=== PATIENT | female | born 1970 | race Caucasian/White ===

== ENCOUNTER 2022-01-02 10:20 | Outpatient (REF) | payer OTHER, SELFPAY ==
[2022-01-02 12:59] LABS: TSH reflex Free T4 4.36 uIU/mL (0.32-4.0)
[2022-01-02 14:08] LABS: Free T4 (Free Thyroxine) 0.81 ng/dL (0.71-1.85)
== END 2022-01-02 10:21 | disposition home or self-care (01) ==
LOC: HO.HMGCLDS 10:20
PROVIDERS: PCP Internal Medicine; Visit Provider Internal Medicine
DX: E78.5 Hyperlipidemia, unspecified (principal); K80.20 Calculus of gallbladder without cholecystitis without obstruction
CPT/HCPCS: 36415; 84439; 84443

== ENCOUNTER 2023-01-03 10:18 | Outpatient (AMB) | payer OTHER, SELFPAY ==
--- NOTE | 2023-01-03 10:20 | MHC.PC.OV ---
Vital Signs 01/03/23 10:22 Height 5 ft 2 in Weight 185 lb BMI 33.8 BP 120/80 Blood Pressure Location Lt brachial Position Sitting Pulse 71 Pulse Source Pulse Oximeter Pulse Oximetry (%) 98 Oxygen Delivery Method Room Air Intake Visit Reasons: Annual PE Intake Note: Pt is here today for PE. Allergies No Known Allergies Allergy (Verified 01/03/23 10:26) Medication List - Last Reconciled 01/03/23 by Veena Beltran MD levothyroxine 88 mcg PO DAILY losartan 50 mg PO BEDTIME triamcinolone acetonide 0.1% 1 appl topical DAILY Tobacco use date assessed: 01/03/23 Dental Screening Dental Screen Date: 01/03/23 Did you have a dental visit in the last 12 months?: Yes Did you have a dental problem in the last 6 months where you did not have access to dental care?: No Was dental information given to patient?: Patient has dentist HPI Annual PE HPI Details Pt presents for PE. [facility] Medical History (Updated 01/03/23 @ 11:14 by Veena Beltran MD) Normal breast exam Annual physical exam Abnormal colonoscopy Menopausal and female climacteric states HTN (hypertension) Proteinuria White coat syndrome with diagnosis of hypertension Hypercholesterolemia Vitamin D deficiency IUD (intrauterine device) in place Hypothyroidism Surgical History Hx of cholecystectomy History of section History of breast lift Family History Father Colitis HTN (hypertension) CVD (cardiovascular disease) Mother Breast cancer Sister No problems noted. Son No problems noted. Son No problems noted. Social History Housing: House Patient Tobacco Use Status: Never used Tobacco e-Cigarette/Vaping Use: Never Used Current occupational status: unemployed Cognitive needs: No Hearing needs: No Vision needs: No Questionnaire Thrive Questionnaire Date Thrive assessed: 04/04/22 KIRAN-7 AMB Questionnaire KIARN-7 Date KIRAN - 7 assessed: 04/04/22 Source: Developed by Drs. Sidney Mike, Staci Holland, Wai Palacio and colleagues, with an educational samantha from [employer]. Review of Systems Const All systems reviewed & are unremarkable except as noted in HPI and below Reports no additional complaints Eyes Reports no additional complaints ENT Reports no additional complaints Card Reports no additional complaints Resp Reports no additional complaints GI Reports no additional complaints Reports no additional complaints Musc Reports no additional complaints Physical exam (Primary Care) Vital Signs: Last Vital Signs Pulse 71 01/03/23 10:22 BP 120/80 01/03/23 10:22 Pulse Ox 98 01/03/23 10:22 Oxygen Delivery Method Room Air 01/03/23 10:22 BMI result Body Mass Index 33.8 Tobacco/Smoking Status: Tobacco use Status Tobacco use date assessed 01/03/23 01/03/23 10:27 Patient Tobacco Use Status Never used Tobacco 01/03/23 10:27 e-Cigarette/Vaping Use Never Used 01/03/23 10:27 Thrive Assessment: Date of Thrive Assessment Date Thrive assessed 04/04/22 01/03/23 10:27 Const General: no acute distress HENMT Head: Yes normal to inspection Ears: hearing grossly normal bilaterally Face and sinus: Yes normal facial exam Mouth: Normal oral and palatal mucosa present Throat: Yes posterior oropharynx normal Neck Neck: Yes no lymphadenopathy and Yes supple Resp Effort & Inspection: normal respiratory effort Auscultation: clear to auscultation bilaterally Cardio Rhythm: regular rhythm Heart sounds: S1 normal heart sound present and S2 normal heart sound present GI Inspection: Yes normal to inspection Palpation (GI): Soft to palpation Percussion: Yes normal to percussion Auscultation: normal bowel sounds Assessment and Plan Assessment & Plan (1) HTN (hypertension): Code(s): I10 - Essential (primary) hypertension Plan: Continue losartan (2) Hyperlipidemia: Code(s): E78.5 - Hyperlipidemia, unspecified Plan: Continue low-cholesterol diet (3) Hypothyroidism: Comment: dx: 2013, nl thyroid US 2018 Code(s): E03.9 - Hypothyroidism, unspecified Plan: Continue levothyroxine (4) Annual physical exam: Code(s): Z00.00 - Encounter for general adult medical examination without abnormal findings Plan: Well-balanced diet regular physical activity discussed with the patient she is up-to-date with the mammogram Pap smear and colonoscopy. Patient will return in 1 year (5) Proteinuria: Code(s): R80.9 - Proteinuria, unspecified Orders: Orders Comprehensive [place]. Panel Fast 365 Days E03.9 - Hypothyroidism, unspecified, E78.5 - Hyperlipidemia, unspecified, I10 - Essential (primary) hypertension Lipid Panel 365 Days E03.9 - Hypothyroidism, unspecified, E78.5 - Hyperlipidemia, unspecified, I10 - Essential (primary) hypertension TSH reflex Free T4 365 Days E03.9 - Hypothyroidism, unspecified, E78.5 - Hyperlipidemia, unspecified, I10 - Essential (primary) hypertension UA CC w/rflx Micro + Cult Today I10 - Essential (primary) hypertension, R80.9 - Proteinuria, unspecified Complete Blood Count Auto Diff 365 Days E03.9 - Hypothyroidism, unspecified, E78.5 - Hyperlipidemia, unspecified, I10 - Essential (primary) hypertension UA w Microscopic 365 Days E03.9 - Hypothyroidism, unspecified, E78.5 - Hyperlipidemia, unspecified, I10 - Essential (primary) hypertension Protein Creatinine Ratio, Ur Today I10 - Essential (primary) hypertension, R80.9 - Proteinuria, unspecified Medications: New losartan 50 mg PO BEDTIME 90 tabs 3RF Refilled levothyroxine 88 mcg PO DAILY 90 tabs 3RF Coding Level of Care Code Est Pt Prev Care 40-64y(09024) Diagnoses HTN (hypertension) I10 Hyperlipidemia E78.5 Hypothyroidism E03.9 Annual physical exam Z00.00 Proteinuria R80.9
[2023-01-03 10:22] VITALS: BP 120/80; PULSE 71; O2SAT 98; BMI 33.8
== END 2023-01-03 11:04 | disposition home or self-care (01) ==
PROVIDERS: Visit Provider Internal Medicine
DX: I10 Essential (primary) hypertension (principal); E78.5 Hyperlipidemia, unspecified; E03.9 Hypothyroidism, unspecified; Z00.00 Encounter for general adult medical examination without abnormal findings; R80.9 Proteinuria, unspecified
CPT/HCPCS: 99396

== ENCOUNTER → 2023-01-16 10:53 | Outpatient (BNVA) | payer OTHER, SELFPAY | PROVIDERS: PCP Internal Medicine; Visit Provider Internal Medicine Hypertension Specialist | DX: R80.9 Proteinuria, unspecified (principal); I10 Essential (primary) hypertension; Z68.33 Body mass index [BMI] 33.0-33.9, adult | CPT/HCPCS: 99212 ==

== ENCOUNTER 2023-01-16 11:10 | Outpatient (AMB) | payer OTHER, SELFPAY ==
[2023-01-16 11:14] VITALS: BP 122/80; PULSE 68; O2SAT 98; BMI 33.5
--- NOTE | 2023-01-16 11:14 | HO.NEPHOV_ITS ---
HPI HPI Comments History of Present Illness Details Middle-aged woman with a BMI of 33 has had proteinuria for the last few years. She has no hematuria. Serum creatinine has been stable around 0.7 mg/dL. She has been on losartan 50 mg for the last few years and the urine protein excretion has been stable around 0.39 based on the protein creatinine ratio. About a month ago she stopped taking losartan for 2 weeks and she noted a blood pressure to be significantly elevated 190/110 mm of mercury associated with some headache. She took ibuprofen and restarted losartan. After is restarting losartan blood pressure has been well controlled. She has no new issues 20. No edema. No shortness of breath. No urinary symptoms. She was accompanied by her [facility] Medical History (Updated 01/03/23 @ 11:14 by Veena Beltran MD) Normal breast exam Annual physical exam Abnormal colonoscopy Menopausal and female climacteric states HTN (hypertension) Proteinuria White coat syndrome with diagnosis of hypertension Hypercholesterolemia Vitamin D deficiency IUD (intrauterine device) in place Hypothyroidism Surgical History Hx of cholecystectomy History of section History of breast lift Family History Father Colitis HTN (hypertension) CVD (cardiovascular disease) Mother Breast cancer Sister No problems noted. Son No problems noted. Son No problems noted. Housing: House Patient Tobacco Use Status: Never used Tobacco e-Cigarette/Vaping Use: Never Used Current occupational status: unemployed Cognitive needs: No Hearing needs: No Vision needs: No Vital Signs 01/16/23 11:14 Height 5 ft 2 in Weight 183 lb BMI 33.5 BP 122/80 Blood Pressure Location Rt brachial Position Sitting Pulse 68 Pulse Source Pulse Oximeter Pulse Oximetry (%) 98 Physical Exam Vital Signs: Last Vital Signs Pulse 68 01/16/23 11:14 BP 122/80 01/16/23 11:14 Pulse Ox 98 01/16/23 11:14 BMI result Body Mass Index 33.5 Const General: comfortable Nutritional Appearance: well nourished Orientation/consciousness: patient oriented x3 HEENT Head: No normal to inspection Mouth: moist mucous membranes Neck Neck: Yes supple and Yes no JVD Resp Auscultation: clear to auscultation bilaterally, no rales and rub present Cardio Jugular venous distension: no JVD Palpation: no palpable S3 and no palpable S4 Heart sounds: no rubs GI Palpation (GI): Soft to palpation and nontender Percussion: No Fluid wave present General: Yes no CVA tenderness Back/Spine/Pelvis Back: no CVA tenderness Skin General skin exam: no rashes or lesions noted Neuro General: patient oriented x3 Extrem General: Yes no pedal edema and No clubbing Results Reviewed Results Reviewed: All results from [facility] were reviewed. Urine protein creatinine ratio 0.39. Serum creatinine 0.7. Serum electrolytes were normal. Assessment & Plan Assessment & Plan (1) Proteinuria: Code(s): R80.9 - Proteinuria, unspecified (2) HTN (hypertension): Code(s): I10 - Essential (primary) hypertension Plan Middle-aged woman with minimal proteinuria of 390 mg based on urine protein creatinine ratio. Urinalysis was benign without any significant RBCs or casts. Serum creatinine has been stable around 0.7 mg/dL. The proteinuria is mostly related to her obesity. She had significant elevation of blood pressure. She probably has new onset hypertension. However are present blood pressure is well controlled with current dose of losartan. Increase her to stay on low-sodium diet. She will benefit from weight loss which we are discussed. I will continue to monitor her renal function and urine protein excretion periodically. If the urine protein excretion increases or if there is any change in renal function we will repeat serological workup and reassess for a kidney biopsy if indicated. At present I do not think she needs a kidney biopsy. Orders: Orders Electrolytes Today R80.9 - Proteinuria, unspecified UA and rflx microscopic Today R80.9 - Proteinuria, unspecified Blood Urea Nitrogen Today R80.9 - Proteinuria, unspecified Creatinine Today R80.9 - Proteinuria, unspecified Calcium Today R80.9 - Proteinuria, unspecified Total Protein Urine Random Today R80.9 - Proteinuria, unspecified Creatinine Urine Today R80.9 - Proteinuria, unspecified Coding Level of Care Code Est Pt Level 3 (80616) Diagnoses Proteinuria R80.9 HTN (hypertension) I10
== END 2023-01-16 11:48 | disposition home or self-care (01) ==
PROVIDERS: PCP Internal Medicine; Visit Provider Internal Medicine Hypertension Specialist
DX: R80.9 Proteinuria, unspecified (principal); I10 Essential (primary) hypertension
CPT/HCPCS: 99213

== ENCOUNTER 2024-01-22 15:55 | Outpatient (AMB) | payer OTHER, SELFPAY ==
[2024-01-22 15:52] VITALS: BP 148/92; PULSE 78; O2SAT 100; BMI 33.3
--- NOTE | 2024-01-22 15:52 | HO.NEPHOV ---
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 She has no hematuria. Serum creatinine has been stable around 0.7 mg/dL. She has been on losartan 50 mg for the last few years and the urine protein excretion has been stable around 0.39 based on the protein creatinine ratio. About a month ago she stopped taking losartan for 2 weeks and she noted a blood pressure to be significantly elevated 190/110 mm of mercury associated with some headache. She took ibuprofen and restarted losartan. After is restarting losartan blood pressure has been well controlled. She has no new issues 20. No edema. No shortness of breath. No urinary symptoms. 01/22/24 Here for annual follow up NO change in weight Home BP has been sub optimal [facility] Medical History (Updated 01/03/23 @ 11:14 by Veena Beltran MD) Normal breast exam Annual physical exam Abnormal colonoscopy Menopausal and female climacteric states HTN (hypertension) Proteinuria White coat syndrome with diagnosis of hypertension Hypercholesterolemia Vitamin D deficiency IUD (intrauterine device) in place Hypothyroidism Surgical History Hx of cholecystectomy History of section History of breast lift Family History Father Colitis HTN (hypertension) CVD (cardiovascular disease) Mother Breast cancer Sister No problems noted. Son No problems noted. Son No problems noted. Social History Housing: House Patient Tobacco Use Status: Never used Tobacco e-Cigarette/Vaping Use: Never Used Current occupational status: unemployed Cognitive needs: No Hearing needs: No Vision needs: No Physical Exam Vital Signs: Last Vital Signs Pulse 78 01/22/24 15:52 BP 148/92 H 01/22/24 15:52 Pulse Ox 100 01/22/24 15:52 Oxygen Delivery Method Room Air 01/22/24 15:52 BMI result Body Mass Index 33.3 Comfortable Neck supple no JVD. Lungs entry equal no rales. Heart S1-S2 heard no gallop or rub. Abdomen soft nontender. Neuro alert awake oriented. No asterixis. Extremities no edema. Results Reviewed Nephrology Results: Urine Protein 1+ (NEG - TRACE) H 12/25/17 Assessment & Plan Assessment & Plan (1) Proteinuria: Code(s): R80.9 - Proteinuria, unspecified Category: Medical (2) HTN (hypertension): Code(s): I10 - Essential (primary) hypertension Category: Medical Plan Middle-aged woman with minimal proteinuria of 390 mg based on urine protein creatinine ratio. Urinalysis was benign without any significant RBCs or casts. Serum creatinine has been stable around 0.7 mg/dL. The proteinuria is mostly related to her obesity. She had significant elevation of blood pressure. She probably has new onset hypertension. However are present blood pressure is sub optimal Increase losartan to 100 mg Increase her to stay on low-sodium diet. She will benefit from weight loss which we are discussed. I will continue to monitor her renal function and urine protein excretion periodically. If the urine protein excretion increases or if there is any change in renal function we will repeat serological workup and reassess for a kidney biopsy if indicated. At present I do not think she needs a kidney biopsy. Orders: Orders Creatinine Urine Today R80.9 - Proteinuria, unspecified Total Protein Urine Random 1 Year R80.9 - Proteinuria, unspecified Creatinine Urine 1 Year R80.9 - Proteinuria, unspecified UA and rflx microscopic 1 Year R80.9 - Proteinuria, unspecified Total Protein Urine Random Today R80.9 - Proteinuria, unspecified Basic Metabolic Panel 1 Year R80.9 - Proteinuria, unspecified Medications: Changed From losartan 50 mg PO BEDTIME 90 tabs 3RF To losartan 100 mg PO BEDTIME 90 tabs 3RF Discontinued prednisone Discontinued Reason: Patient no longer taking 20 mg PO DAILY 5 tabs 0RF Coding Level of Care Code Est Pt Level 4 (73572) Diagnoses Proteinuria R80.9 HTN (hypertension) I10
== END 2024-01-22 16:16 | disposition home or self-care (01) ==
PROVIDERS: PCP Internal Medicine; Visit Provider Internal Medicine Hypertension Specialist
DX: R80.9 Proteinuria, unspecified (principal); I10 Essential (primary) hypertension
CPT/HCPCS: 99214

== ENCOUNTER → 2024-01-22 15:55 | Outpatient (BNVA) | payer OTHER, SELFPAY | PROVIDERS: PCP Internal Medicine; Visit Provider Internal Medicine Hypertension Specialist | DX: R80.9 Proteinuria, unspecified (principal); I10 Essential (primary) hypertension | CPT/HCPCS: 99212 ==

== ENCOUNTER 2024-01-29 11:31 | Outpatient (AMB) | payer OTHER, SELFPAY ==
[2024-01-29 11:48] VITALS: BP 140/88; PULSE 78; O2SAT 97; BMI 33.8
--- NOTE | 2024-01-29 11:48 | MHC.PC.OV ---
Vital Signs 01/29/24 11:48 Height 5 ft 2 in Weight 185 lb BMI 33.8 BP 140/88 H Blood Pressure Location Lt brachial Position Sitting Pulse 78 Pulse Source Pulse Oximeter Pulse Oximetry (%) 97 Oxygen Delivery Method Room Air Intake Visit Reasons: Annual PE Intake Note: Pt is here today for her PE Allergies No Known Allergies Allergy (Verified 01/29/24 11:48) Medication List - Last Reconciled 01/29/24 by Veena Beltran MD cholecalciferol (vitamin D3) 25 mcg PO DAILY levothyroxine 88 mcg PO DAILY losartan 100 mg PO BEDTIME mecobalamin (vitamin B12) 1,000 mcg PO DAILY Tobacco use date assessed: 01/29/24 Dental Screening Dental Screen Date: 01/29/24 Did you have a dental visit in the last 12 months?: Yes Did you have a dental problem in the last 6 months where you did not have access to dental care?: No Was dental information given to patient?: Patient has dentist HPI Annual PE HPI Details Pt presents for PE. [facility] Medical History (Updated 01/29/24 @ 12:33 by Veena Beltran MD) Normal breast exam Annual physical exam Abnormal colonoscopy Menopausal and female climacteric states HTN (hypertension) Proteinuria White coat syndrome with diagnosis of hypertension Hypercholesterolemia Vitamin D deficiency IUD (intrauterine device) in place Hypothyroidism Surgical History Hx of cholecystectomy History of section History of breast lift Family History Father Colitis HTN (hypertension) CVD (cardiovascular disease) Mother Breast cancer Sister No problems noted. Son No problems noted. Son No problems noted. Social History Housing: House Patient Tobacco Use Status: Never used Tobacco e-Cigarette/Vaping Use: Never Used Current occupational status: unemployed Cognitive needs: No Hearing needs: No Vision needs: No Questionnaire PHQ-9 Over the last 2 weeks, how often have you been bothered by any of the following problems? 1. Little interest or pleasure in doing things: not at all 2. Feeling down, depressed, or hopeless: not at all 3. Trouble falling or staying asleep, or sleeping too much: not at all 4. Feeling tired or having little energy: not at all 5. Poor appetite or overeating: not at all 6. Feeling bad about yourself - or that you are a failure or have let yourself or your family down: not at all 7. Trouble concentrating on things, such as reading the newspaper or watching television: not at all 8. Moving or speaking so slowly that other people could have noticed. Or the opposite - being so fidgety or restless that you have been moving around a lot more than usual: not at all 9. Thoughts that you would be better off or of hurting yourself in some way: not at all Total score: 0 Depression Screening Interpretation: Negative Depression Screening Done: Yes 35973 - PHQ-9 Billing: Yes Source: Developed by Drs. Sidney Mike, Staci Holladn, Wai Palacio and colleagues, with an educational samantha from [employer]. Thrive Questionnaire Date Thrive assessed: 04/04/22 I am a: Patient What is your living situation today?: I choose not to answer this question Within the past 12 months, did the food you bought not last and you didn't have the money to get more?: I choose not to answer this question Within the past 12 months, did you worry whether your food would run out before you got money to buy more?: Never true Do you have trouble paying for medicines?: No Do you have trouble getting transportation to medical appointments?: No Do you have trouble paying your heating and electricity bill?: No Do you have trouble taking care of your child, family member or friend?: No Do you have trouble with day-to-day activities such as bathing, preparing meals, shopping, managing finances, etc.?: No Are you currently unemployed and looking for a job?: No Are you interested in more education?: No Please select the resources that you would like help with: None Currently or been in a relationship where the following occur: No concerns reported THRIVE Score: 0 AUDIT C Alcohol Use Questionnaire (AUDIT-C) 1. How often do you have a drink containing alcohol?: Monthly or less 2. How many drinks containing alcohol do you have on a typical day when you are drinking?: 1 or 2 3. How often do you have six or more drinks on one occasion?: Never Total Score: 1 KIRAN-7 AMB Questionnaire KIRAN-7 Date KIRAN - 7 assessed: 04/04/22 Feeling nervous, anxious, or on edge: 0 = Not at all Not being able to stop or control worryin = Not at all Worrying too much about different things: 0 = Not at all Trouble relaxin = Not at all Being so restless that it is hard to sit still: 0 = Not at all Becoming easily annoyed or irritable: 0 = Not at all Feeling afraid as if something awful might happen: 0 = Not at all Total KIRAN-7 score (0-4 normal; 5-9 mild; 10-14 moderate; 15-21 severe): 0 Source: Developed by Drs. Sidney Mike, Staci Holland, Wai Palacio and colleagues, with an educational samantha from [employer]. Review of Systems Const All systems reviewed & are unremarkable except as noted in HPI and below Reports no additional complaints Eyes Reports no additional complaints ENT Reports no additional complaints Card Reports no additional complaints Resp Reports no additional complaints GI Reports no additional complaints Reports no additional complaints Physical exam (Primary Care) Vital Signs: Last Vital Signs Pulse 78 01/29/24 11:48 BP 140/88 H 01/29/24 11:48 Pulse Ox 97 01/29/24 11:48 Oxygen Delivery Method Room Air 01/29/24 11:48 BMI result Body Mass Index 33.8 Tobacco/Smoking Status: Tobacco use Status Tobacco use date assessed 01/29/24 01/29/24 11:50 Patient Tobacco Use Status Never used Tobacco 01/29/24 11:50 e-Cigarette/Vaping Use Never Used 01/29/24 11:50 Depression Screening Interpretation: Negative Thrive Assessment: Date of Thrive Assessment Date Thrive assessed 04/04/22 01/29/24 11:50 Currently or been in a relationship where the following occur: No concerns reported Const General: no acute distress HENMT Head: Yes normal to inspection Ears: hearing grossly normal bilaterally Face and sinus: Yes normal facial exam Mouth: Normal oral and palatal mucosa present Throat: Yes posterior oropharynx normal Eyes General: appearance normal, both eyes and all related structures Neck Neck: Yes no lymphadenopathy and Yes supple Resp Effort & Inspection: normal respiratory effort Auscultation: clear to auscultation bilaterally Cardio Rhythm: regular rhythm Heart sounds: S1 normal heart sound present and S2 normal heart sound present GI Inspection: Yes normal to inspection Palpation (GI): Soft to palpation Percussion: Yes normal to percussion Auscultation: normal bowel sounds Coding Level of Care Code Est Pt Prev Care 40-64y(54957) Diagnoses Proteinuria R80.9 Hypothyroidism E03.9 Hyperlipidemia E78.5 HTN (hypertension) I10 Annual physical exam Z00.00 Abnormal colonoscopy R93.3 Additional Codes PHQ-9 - 32839 - PHQ-9 Billing: Yes ([id number]) Assessment & Plan Assessment & Plan (1) Proteinuria: Comment: f/u with nephrology Code(s): R80.9 - Proteinuria, unspecified Category: Medical Plan: Patient started taking 100 mg of losartan 1 week ago 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 She has been tolerating medication well (2) Hypothyroidism: Comment: dx: 2013, nl thyroid US 2018 Code(s): E03.9 - Hypothyroidism, unspecified Category: Medical Plan: Continue levothyroxine check thyroid ultrasound for enlarged thyroid (3) Hyperlipidemia: Code(s): E78.5 - Hyperlipidemia, unspecified Category: Medical Plan: Low-cholesterol diet increase physical activity weight loss discussed with the patient (4) HTN (hypertension): Code(s): I10 - Essential (primary) hypertension Category: Medical Plan: Continue 100 mg of losartan follow-up in 6 weeks (5) Annual physical exam: Code(s): Z00.00 - Encounter for general adult medical examination without abnormal findings Category: Medical Plan: Well-balanced diet regular exercise weight loss discussed with the patient. 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 Stephens Code(s): R93.3 - Abnormal findings on diagnostic imaging of other parts of digestive tract Category: Medical Plan: Referred to GI for repeat colonoscopy Orders: Orders US thyroid Today E04.9 - Nontoxic goiter, unspecified Referrals Podiatry Referral L84 - Corns and callosities
== END 2024-01-29 12:40 | disposition home or self-care (01) ==
PROVIDERS: PCP Internal Medicine; Visit Provider Internal Medicine
DX: R80.9 Proteinuria, unspecified (principal); E03.9 Hypothyroidism, unspecified; E78.5 Hyperlipidemia, unspecified; I10 Essential (primary) hypertension; Z00.00 Encounter for general adult medical examination without abnormal findings; R93.3 Abnormal findings on diagnostic imaging of other parts of digestive tract

== ENCOUNTER → 2024-01-29 11:31 | Outpatient (BNVA) | payer OTHER, SELFPAY | PROVIDERS: PCP Internal Medicine; Visit Provider Internal Medicine | DX: Z00.00 Encounter for general adult medical examination without abnormal findings (principal); I10 Essential (primary) hypertension; R93.3 Abnormal findings on diagnostic imaging of other parts of digestive tract; R80.9 Proteinuria, unspecified; E03.9 Hypothyroidism, unspecified; E78.5 Hyperlipidemia, unspecified | CPT/HCPCS: 96127; 99396 ==

== ENCOUNTER 2024-01-29 12:49 | Outpatient (REF) | payer OTHER, SELFPAY ==
[2024-01-29 17:25] LABS: Creatinine Urine 62.41 mg/dL; Total Protein Urine Random 18 mg/dL (<12)
== END 2024-01-29 12:50 | disposition home or self-care (01) ==
LOC: HO.HMGCLDS 12:49
PROVIDERS: PCP Internal Medicine; Visit Provider Internal Medicine Hypertension Specialist
DX: R80.9 Proteinuria, unspecified (principal)
CPT/HCPCS: 82570; 84156

== ENCOUNTER 2024-03-18 12:34 | Outpatient (AMB) | payer OTHER, SELFPAY ==
--- NOTE | 2024-03-18 12:50 | A.OFFPC_ITS ---
Vital Signs 03/18/24 13:01 Height 5 ft 2 in Weight 183 lb BMI 33.5 BP 122/80 Blood Pressure Location Lt brachial Position Sitting Pulse 78 Pulse Source Pulse Oximeter Pulse Oximetry (%) 96 Oxygen Delivery Method Room Air Intake Visit Reasons: 6 weeks follow up Intake Note: Marizol is here today for 6 weeks follow up visit. Allergies No Known Allergies Allergy (Verified 03/18/24 13:02) Medication List - Last Reconciled 03/18/24 by Veena Beltran MD cholecalciferol (vitamin D3) 25 mcg PO DAILY levothyroxine 88 mcg PO DAILY losartan 100 mg PO BEDTIME mecobalamin (vitamin B12) 1,000 mcg PO DAILY Tobacco use date assessed: 03/18/24 Dental Screening Dental Screen Date: 03/18/24 Did you have a dental visit in the last 12 months?: Yes Did you have a dental problem in the last 6 months where you did not have access to dental care?: No Was dental information given to patient?: Patient has dentist HPI 6 weeks follow up HPI Details Pt presents for f/u hypothyroid and HTN, stable on meds. [facility] Medical History Normal breast exam Annual physical exam Abnormal colonoscopy Menopausal and female climacteric states HTN (hypertension) Proteinuria White coat syndrome with diagnosis of hypertension Hypercholesterolemia Vitamin D deficiency IUD (intrauterine device) in place Hypothyroidism Surgical History Hx of cholecystectomy History of section History of breast lift Family History Father Colitis HTN (hypertension) CVD (cardiovascular disease) Mother Breast cancer Sister No problems noted. Son No problems noted. Son No problems noted. Social History Housing: House Patient Tobacco Use Status: Never used Tobacco e-Cigarette/Vaping Use: Never Used service: No Current occupational status: unemployed Cognitive needs: No Hearing needs: No Vision needs: No Questionnaire PHQ-9 Over the last 2 weeks, how often have you been bothered by any of the following problems? 1. Little interest or pleasure in doing things: not at all 2. Feeling down, depressed, or hopeless: not at all 3. Trouble falling or staying asleep, or sleeping too much: not at all 4. Feeling tired or having little energy: not at all 5. Poor appetite or overeating: not at all 6. Feeling bad about yourself - or that you are a failure or have let yourself or your family down: not at all 7. Trouble concentrating on things, such as reading the newspaper or watching television: not at all 8. Moving or speaking so slowly that other people could have noticed. Or the opposite - being so fidgety or restless that you have been moving around a lot more than usual: not at all 9. Thoughts that you would be better off or of hurting yourself in some way: not at all Total score: 0 Depression Screening Interpretation: Negative Depression Screening Done: Yes 09243 - PHQ-9 Billing: Yes Source: Developed by Drs. Sidney Mike, Staci Holland, Wai Palacio and colleagues, with an educational samantha from [employer]. Thrive Questionnaire Date Thrive assessed: 03/18/24 I am a: Patient What is your living situation today?: I choose not to answer this question Within the past 12 months, did the food you bought not last and you didn't have the money to get more?: I choose not to answer this question Within the past 12 months, did you worry whether your food would run out before you got money to buy more?: Never true Do you have trouble paying for medicines?: No Do you have trouble getting transportation to medical appointments?: No Do you have trouble paying your heating and electricity bill?: No Do you have trouble taking care of your child, family member or friend?: No Do you have trouble with day-to-day activities such as bathing, preparing meals, shopping, managing finances, etc.?: No Are you currently unemployed and looking for a job?: No Are you interested in more education?: No Please select the resources that you would like help with: None Currently or been in a relationship where the following occur: No concerns reported THRIVE Score: 0 AUDIT C Alcohol Use Questionnaire (AUDIT-C) 1. How often do you have a drink containing alcohol?: Monthly or less 2. How many drinks containing alcohol do you have on a typical day when you are drinking?: 1 or 2 3. How often do you have six or more drinks on one occasion?: Never Total Score: 1 KIRAN-7 AMB Questionnaire KIRAN-7 Date KIRAN - 7 assessed: 03/18/24 Feeling nervous, anxious, or on edge: 0 = Not at all Not being able to stop or control worryin = Not at all Worrying too much about different things: 0 = Not at all Trouble relaxin = Not at all Being so restless that it is hard to sit still: 0 = Not at all Becoming easily annoyed or irritable: 0 = Not at all Feeling afraid as if something awful might happen: 0 = Not at all Total KIRAN-7 score (0-4 normal; 5-9 mild; 10-14 moderate; 15-21 severe): 0 Source: Developed by Drs. Sidney Mike, Staci Holland, Wai Palacio and colleagues, with an educational samantha from [employer]. KIRAN-7 Assessment Billing KIRAN-7 Assessment Tool: KIRAN-7 Assessment 53384 Physical exam (Primary Care) Vital Signs: Last Vital Signs Pulse 78 03/18/24 13:01 BP 122/80 03/18/24 13:01 Pulse Ox 96 03/18/24 13:01 Oxygen Delivery Method Room Air 03/18/24 13:01 BMI result Body Mass Index 33.5 Tobacco/Smoking Status: Tobacco use Status Tobacco use date assessed 03/18/24 03/18/24 13:05 Patient Tobacco Use Status Never used Tobacco 03/18/24 12:50 e-Cigarette/Vaping Use Never Used 03/18/24 12:50 PHQ-9: PHQ-9 Score PHQ-9: Total score 0 03/18/24 13:05 Depression Screening Interpretation: Negative Thrive Assessment: Date of Thrive Assessment Date Thrive assessed 03/18/24 03/18/24 13:05 Currently or been in a relationship where the following occur: No concerns reported Const General: no acute distress Eyes General: appearance normal, both eyes and all related structures Resp Effort & Inspection: normal respiratory effort Auscultation: clear to auscultation bilaterally Cardio Rhythm: regular rhythm Heart sounds: S1 normal heart sound present and S2 normal heart sound present Coding Level of Care Code Est Pt Level 4 (03785) Diagnoses Hypothyroidism E03.9 HTN (hypertension) I10 Hyperlipidemia E78.5 Additional Codes KIRAN-7 Assessment Billing - KIRAN-7 Assessment Tool: KIRAN-7 Assessment 42981 ([id number]) PHQ-9 - 27213 - PHQ-9 Billing: Yes ([id number]) Assessment & Plan Assessment & Plan (1) Hypothyroidism: Comment: dx: 2013, nl thyroid US 2018 Code(s): E03.9 - Hypothyroidism, unspecified Category: Medical Plan: Continue levothyroxine (2) HTN (hypertension): Code(s): I10 - Essential (primary) hypertension Category: Medical Plan: Continue losartan, follow-up in 3 months with fasting labs before (3) Hyperlipidemia: Code(s): E78.5 - Hyperlipidemia, unspecified Category: Medical Plan: Continue low-cholesterol diet, patient needs a Pap smear next time Orders: Orders Lipid Panel 3 Months E03.9 - Hypothyroidism, unspecified, E78.5 - Hyperlipidemia, unspecified, I10 - Essential (primary) hypertension Hemoglobin A1c 3 Months E03.9 - Hypothyroidism, unspecified, E78.5 - Hyperlipidemia, unspecified, I10 - Essential (primary) hypertension Vitamin B12 and Folate 3 Months E03.9 - Hypothyroidism, unspecified, E78.5 - Hyperlipidemia, unspecified, I10 - Essential (primary) hypertension Vitamin D 25-OH Total 3 Months E03.9 - Hypothyroidism, unspecified, E78.5 - Hyperlipidemia, unspecified, I10 - Essential (primary) hypertension Comprehensive [place]. Panel Fast 3 Months E03.9 - Hypothyroidism, unspecified, E78.5 - Hyperlipidemia, unspecified, I10 - Essential (primary) hypertension TSH reflex Free T4 3 Months E03.9 - Hypothyroidism, unspecified, E78.5 - Hyperlipidemia, unspecified, I10 - Essential (primary) hypertension
[2024-03-18 13:01] VITALS: BP 122/80; PULSE 78; O2SAT 96; BMI 33.5
--- OUTSIDE RECORDS SUMMARY | 2024-03-18 14:24 | XMS_ITS | Clinical Summary ---
Author Organization [facility] Facility Address [address] [place] [address] Care Team Providers Care Custom Framing Specialist Name Role Phone Veena Beltran MD Primary Care Provider [phone] Allergies No known active allergies Medications omega-3 (FISH OIL) 1000 MG capsule Take 1 capsule by mouth 1 (one) time each day Active Selenium 200 MCG capsule Take 1 capsule by mouth 1 (one) time each day Active cyanocobalamin (VITAMIN B-12) 1000 MCG tablet Take 1 tablet by mouth 1 (one) time each day Active levothyroxine (SYNTHROID, LEVOTHROID) 75 MCG tablet Take 1 tablet by mouth 1 (one) time each day Active losartan (COZAAR) 50 MG tablet TAKE 1 TABLET BY MOUTH EVERY DAY IN THE EVENING 90 tablet 2 08/05/2022 Active Active Problems Problem Noted Date Diagnosed Date Obesity 06/21/2021 Increased blood pressure 06/07/2020 Essential hypertension 06/07/2020 Hyperlipidemia 06/07/2020 Hypothyroidism 06/07/2020 Proteinuria 06/07/2020 Vitamin D deficiency 06/07/2020 Immunizations Name Administration Dates Next Due Tdap 04/30/2012 Family History Medical History Relation Comments Heart disease Father Hypertension Father Cancer Mother Hypertension Mother Hypertension Sibling Relation Status Comments Father Alive Mother Unknown Sibling Social History Tobacco Use Types Packs/Day Years Used Date Smoking Tobacco: Never Smokeless Tobacco: Never Tobacco Cessation:Counseling Given: No Alcohol Use Standard Drinks/Week Comments Yes 0 (1 standard drink = 0.6 oz pure alcohol) Alcoholic Drinks/day: Occasional social drink Comments Unknown Sex and Gender Information Value Date Recorded Sex Assigned at Not on file Legal Sex Female 4:49 PM EST Gender Identity Not on file Sexual Orientation Not on file Last Filed Vital Signs Vital Sign Reading Time Taken Comments Blood Pressure 130/88 12/27/2021 1:33 PM EDT Pulse 75 12/27/2021 1:33 PM EDT Temperature - - Respiratory Rate - - Oxygen Saturation 98% 12/27/2021 1:33 PM EDT Inhaled Oxygen Concentration - - Weight 81.3 kg (179 lb 3.2 oz) 12/27/2021 1:33 P M EDT Height 157.5 cm (5' 2 ) 06/21/2021 1:37 PM EDT Body Mass Index 32.78 06/21/2021 1:37 PM EDT Plan of Treatment Health Maintenance Due Date Last Done Comments Breast Cancer Screening 1970 Pneumococcal Vaccine: Pediat rics (0 to 5 Years) and At-Risk Patients (6 to 64 Years) (1 of 2 - PCV) 1976 Hepatitis B Vaccine (1 of 3 - 19+ 3-dose series) 11/29 Colorectal Cancer Screening: Annual FOBT 11/30/2019 Colorectal Cancer Screening: Colonoscopy 11/30/2019 Colorectal Cancer Screening: Sigmoidoscopy 11/30/2019 Influenza Vaccine (#1) 2023 Care Teams Custom Framing Specialist Relationship Specialty Start Date End Date Veena Beltran MD [address] [place] [address] PCP - General 03/07/20
--- OUTSIDE RECORDS SUMMARY | 2024-03-18 14:24 | XMS_ITS | Clinical Summary ---
Author Organization [address] [place] [address] Address [address] [place] [address] Phone Care Team Providers Care Tapping Machine Operator Name Role Phone Veena Beltran MD Primary Care Provider [phone] Allergies No known active allergies Medications Medication Sig Dispensed Refills Start Date End Date Status levothyroxine (SYNTHROID, LEVOTHROID) 75 mcg tablet levothyroxine 75 mcg tablet Active Surgical History Surgery Date Site/Laterality Comments SECTION PROCEDURE: [place] DELIVERY ONLY OTHER SURGICAL HISTORY 2015 Bilateral PROCEDURE: ---- OTHER ----; COMMENT: breast Social History Tobacco Use Types Packs/Day Years Used Date Smoking Tobacco: Never Alcohol Use Standard Drinks/Week Comments Yes 0 (1 standard drink = 0.6 oz pur e alcohol) Sex and Gender Information Value Date Recorded Sex Assigned at Not on file Gender Identity Not on file Sexual Orientation Not on file Obstetrics History Last Filed Vital Signs Vital Sign Reading Time Taken Comments Blood Pressure 130/85 12/12/2021 2:18 PM EDT Pulse 80 12/12/2021 2:18 PM EDT Temperature - - Respiratory Rate - - Oxygen Saturation - - Inhaled Oxygen Concentration - - Weight 80.3 kg (177 lb) 12/12/2021 2:18 PM EDT Height 157.5 cm (5' 2 ) 10/24/2021 11:55 AM EDT Body Mass Index 32.37 10/24/2021 11:55 AM EDT Plan of Treatment Upcoming Encounters Date Type Department Care Team (Late st Contact Info) Description 05/11/2024 1:45 PM EDT Consult Orthopedic Surgery - [place] [id number] [address] Jesse Rand DPM [address] [id number] Health Maintenance Due Date Last Done Comments Breast Cancer Screening 1970 DTaP,Tdap,and Td Vaccines (1 - Tdap) 1989 Hepatitis B Vaccines (1 of 3 - 19+ 3-dose series) 1989 Cervical Cancer Screening: P ap Smear 11/30/1991 Zoster Vaccines (1 of 2) 2020 Colorectal Cancer Screening: Colonoscopy 01/24/2022 Depression Screening 01/24/2022 HIV Screening 01/24/2022 Hepatitis C Screening 01/24/2022 Social Influencers of Health Screening 01/24/2022 COVID-19 Vaccine (1 - 2023-2 5 season) 2023 Influenza Vaccine (#1) 2023 HIB Vaccines Aged Out No longer eligi ble based on patient's age to complete this topic HPV Vaccines Aged Out No longer eligi ble based on patient's age to complete this topic Hepatitis A Vaccines Aged Out No long er eligible based on patient's age to complete this topic IPV Vaccines Aged Out No longer eligi ble based on patient's age to complete this topic MMR Vaccines Aged Out No longer eligi ble based on patient's age to complete this topic Meningococcal ACWY Vaccine Aged Out N o longer eligible based on patient's age to complete this topic Pneumococcal Vaccine: Pediat rics (0 to 5 Years) and At-Risk Patients (6 to 64 Years) Aged Out No longer eligible b ased on patient's age to complete this topic RSV Immunization Patients Un dione 20 months Aged Out No longer eligible b ased on patient's age to complete this topic Varicella Vaccines Aged Out No longer eligible based on patient's age to complete this topic Care Teams Tapping Machine Operator Relationship Specialty Start Date End Date Veena Beltran MD PCP - General Internal Medicine 10/31/21
== END 2024-03-18 13:28 | disposition home or self-care (01) ==
PROVIDERS: PCP Internal Medicine; Visit Provider Internal Medicine
DX: E03.9 Hypothyroidism, unspecified (principal); I10 Essential (primary) hypertension; E78.5 Hyperlipidemia, unspecified

== ENCOUNTER 2024-03-18 13:32 | Outpatient (REF) | payer OTHER, SELFPAY ==
--- NOTE | ~2024-03-18 | US_ITS ---
EXAMINATION: US THYROID CLINICAL INFORMATION: Nontoxic goiter COMPARISON: None available. TECHNIQUE: Linear transducer grayscale and color Doppler examination with attention to the region of the thyroid. FINDINGS: SIZE: Measurements of the thyroid lobes and nodules are given in sagittal, anteroposterior and transverse dimensions respectively. Right Thyroid Lobe: 3.8 x 1.3 x 1.3 cm, volume 3.5 mL. Previously measured 4.6 x 1.7 x 1.4 cm and volume 5.5 mL Parenchyma: The gland echotexture is heterogeneous. Thyroid vascularity is hypervascular. Left Thyroid Lobe: 4.5 x 1.6 x 1.7 cm, volume 6.1 mL. Previously measured 4.8 x 1.4 x 1.6 cm and volume 5.8 mL Parenchyma: The gland echotexture is heterogeneous. Thyroid vascularity is hypervascular. Isthmus: 0.57 cm in maximum AP dimension. Previously measured 0.50 Estimated total number of nodules greater than or equal to 1 cm: None. Information Services Consultant nodules are described as follows: NODES: No lymphadenopathy is seen in the tissue surrounding the thyroid gland. US/US thyroid IMPRESSION: Heterogeneous hypervascular thyroid gland without nodules. ACR TI-RADS RECOMMENDATION REFERENCE: Ultrasound-guided fine-needle aspiration, followup ultrasound, no further follow up. * TR1 (0 point) and TR2 (2 points): No FNA or follow up. * TR3 (3 points): FNA if more than or equal to 2.5 cm in maximum dimension, followup ultrasound in 1, 3 and 5 years if 1.5 to 2.4 cm in maximum dimension. * TR4 (4-6 points): FNA if more than or equal to 1.5 cm in maximum dimension, followup ultrasound in 1, 2, 3 and 5 years if 1 to 1.4 cm in maximum dimension. * TR5 (more than or equal to 7 points): FNA if more than or equal to 1 cm in maximum dimension, followup ultrasound every year for 5 years if 0.5 to 0.9 cm in maximum dimension. * TR3, TR4 or TR5 nodules that are below the size threshold for followup receive no follow up. Electronically signed by: Nickolas Sweeney MD 03/18/2024 02:18 PM [facility]
--- OUTSIDE RECORDS SUMMARY | 2024-03-18 15:42 | XMS_ITS | Clinical Summary ---
Author Organization [address] [place] [address] Address [address] [place] [address] Phone Care Team Providers Care Soda Dry House Operator Name Role Phone Veena Beltran MD Primary Care Provider [phone] Allergies No known active allergies Medications Medication Sig Dispensed Refills Start Date End Date Status levothyroxine (SYNTHROID, LEVOTHROID) 75 mcg tablet levothyroxine 75 mcg tablet Active Surgical History Surgery Date Site/Laterality Comments SECTION PROCEDURE: [place] DELIVERY ONLY OTHER SURGICAL HISTORY 2015 Bilateral [...] 1:45 PM EDT Consult Orthopedic Surgery - [place] [id number] [address] Jesse Rand DPM [address] [phone] Health Maintenance Due Date Last Done Comments [...] age to complete this topic Care Teams Soda Dry House Operator Relationship Specialty Start Date End Date Veena Beltran MD PCP - General Internal Medicine 10/31/21
--- OUTSIDE RECORDS SUMMARY | 2024-03-18 15:42 | XMS_ITS | Clinical Summary ---
Author Organization [facility] Facility Address [address] [place] [address] Care Team Providers Care Manager Universal Name Role Phone Veena Beltran MD Primary Care Provider [phone] Allergies No known active allergies Medications omega-3 [...] 11/30/2019 Influenza Vaccine (#1) 2023 Care Teams Manager Universal Relationship Specialty Start Date End Date Veena Beltran MD [address] [place] [address] PCP - General 03/07/20
== END 2024-03-18 13:33 | disposition home or self-care (01) ==
LOC: HO.HMGCX 13:32
PROVIDERS: PCP Internal Medicine; Visit Provider Internal Medicine
DX: E03.9 Hypothyroidism, unspecified (principal); I10 Essential (primary) hypertension; E78.5 Hyperlipidemia, unspecified; E04.9 Nontoxic goiter, unspecified; Z79.899 Other long term (current) drug therapy
CPT/HCPCS: 76536; 96127; 99212

== ENCOUNTER → 2024-03-18 13:36 | Outpatient (BNV) | payer OTHER, SELFPAY | PROVIDERS: PCP Internal Medicine; Visit Provider Radiology Diagnostic Radiology | DX: E07.89 Other specified disorders of thyroid (principal) | CPT/HCPCS: 76536 ==

== ENCOUNTER 2024-06-10 11:05 | Outpatient (REF) | payer OTHER, SELFPAY ==
[2024-06-10 11:37] LABS: Estimated Average Glucose 111 mg/dL; Hemoglobin A1C 137.7004 umol/L; Hemoglobin A1c % 5.5 % (<6.0); Total Hemoglobin (HGBA1C) 3803.9223 umol/L
[2024-06-10 12:43] LABS: TSH reflex Free T4 3.18 uIU/mL (0.32-4.0); Vitamin D 25-OH Total 42.2 ng/mL (>30)
[2024-06-10 12:46] LABS: Anion Gap 10 (12-20)
[2024-06-10 12:51] LABS: Alanine Aminotransferase 34 U/L (0-31); Albumin Level 3.9 g/dL (3.5-5.0); Alkaline Phosphatase 68 U/L (39-117); Aspartate Amino Transferase 26 U/L (5-31); Bilirubin Total 0.3 mg/dL (0.0-1.0); Blood Urea Nitrogen 11 mg/dL (9-16); Calcium 9.3 mg/dL (8.4-10.2); Carbon Dioxide 27 mmol/L (22-29); Chloride 108 mmol/L (96-108); Cholesterol 201 mg/dL (<200); Estimated Glomerular Filt Rate > 60; Folate 5.2 ng/mL (> or = 4.0); Glucose Fasting 95 mg/dL (60-99); HDL Cholesterol 52 mg/dL (>40); LDL Cholesterol Calculated 116 mg/dL (<100); Potassium 4.4 mmol/L (3.3-5.1); Sodium 141 mmol/L (135-145); Total Protein 7.1 g/dL (6.5-8.0); Triglycerides 167 mg/dL (<150); Vitamin B12 311 pg/mL (200-900)
--- OUTSIDE RECORDS SUMMARY | 2024-06-10 13:19 | XMS_ITS | Clinical Summary ---
Author Organization [address] [place] [address] Address [address] [place] [address] Phone Care Team Providers Care Director Patient Name Role Phone Veena Beltran MD Primary Care Provider [phone] Allergies No known active allergies Medications levothyroxine (SYNTHROID, LEVOTHROID) 75 mcg tablet levothyroxine 75 mcg tablet Active Encounters Date Type Department Care Team Description 05/11/2024 1:45 PM EDT Consult Orthopedic Surgery [facility] [address] [facility] [address] [place] [phone] Jesse Rand, DPM Teddy's deformity of left heel (Primary Dx); Achilles tendinitis of left lower extremity; Bunion of great toe of right foot; Lumbosacral radiculopathy from Last 3 Months Surgical History Surgery Date Site/Laterality Comments SECTION PROCEDURE: [place] DELIVERY ONLY OTHER SURGICAL HISTORY 2016 Bilateral PROCEDURE: ---- OTHER ----; COMMENT: breast Social History Tobacco Use Types Packs/Day Years Used Date Smoking Tobacco: Never Alcohol Use Standard Drinks/Week Comments Yes 0 (1 standard drink = 0.6 oz pur e alcohol) Comments Unknown Sex and Gender Information Value Date Recorded Sex Assigned at Not on file Legal Sex Female 4:29 PM EST Gender Identity Not on file Sexual Orientation Not on file Obstetrics History Last Filed Vital Signs Vital Sign Reading Time Taken Comments Blood Pressure 130/85 12/12/2021 2:18 PM EDT Pulse 80 12/12/2021 2:18 PM EDT Temperature - - Respiratory Rate - - Oxygen Saturation - - Inhaled Oxygen Concentration - - Weight 80.3 kg (177 lb) 05/11/2024 1:41 PM EDT Height 157.5 cm (5' 2.01 ) 05/11/2024 1:41 PM ED T Body Mass Index 32.37 05/11/2024 1:41 PM EDT Plan of Treatment Health Maintenance Due Date Last Done Comments Breast Cancer Screening 1970 Hepatitis B Vaccines (1 of 3 - 19+ 3-dose series) 1989 Cervical Cancer Screening: P ap Smear 11/30/1991 Pneumococcal Vaccine: 50+ Years (1 of 1 - PCV) 2020 Zoster Vaccines (1 of 2) 2020 Cholesterol Screening (Lipid Panel) 01/24/2022 Colorectal Cancer Screening: Colonoscopy 01/24/2022 Depression Screening 01/24/2022 HIV Screening 01/24/2022 Hepatitis C Screening 01/24/2022 Social Influencers of Health Screening 01/24/2022 DTaP,Tdap,and Td Vaccines (2 - Td or Tdap) 04/30/2022 04/30/2012 COVID-19 Vaccine (3 - 2023-2 5 season) 2023 06/17/2020, 05/27/2020 Hypertension/CHF/CAD Annual BMP Blood Test 05/11/2024 12/28/2022 Influenza Vaccine (Season Ended) 2024 03/23/2015 HIB Vaccines Aged Out No longer eligi [...] patient's age to complete this topic Meningococcal B Vaccine Aged Out No l onger eligible based on patient's age to complete this topic Pneumococcal Vaccine: Pediatrics (0 to 5 Years) and At-Risk Patients (6 to 64 Years) Aged Out No longer eligible b ased on patient's age to complete this topic RSV Immunization Patients Under 20 months Aged Out No longer eligible b ased on patient's age to complete this topic Varicella Vaccines Aged Out No longer eligible based on patient's age to complete this topic Procedures Procedure Name Priority Date/Time Associated Diagnosis Comments XR LUMBAR SPINE 4+ VIEWS Routine 05/11/2024 2:29 PM EDT Foot pain XR ANKLE 3+ VIEWS LEFT Routine 05/11/2024 2:29 PM EDT Left ankle pain XR FOOT 3+ VIEWS RIGHT Routine 05/11/2024 2:28 PM EDT Corns and callosities from Last 3 Months Results * XR Lumbar Spine 4+ Views (05/11/2024 2:29 PM EDT) Anatomical Region Laterality Modality Spine, L-spine Computed Radiogr aphy 05/11/2024 2:33 PM EDT Impressions 05/11/2024 2:35 PM EDT No acute findings. -------- FINAL REPORT -------- Dictated By: Rosa Brown Dictated Date: 05/11/2024 14:33 ET Assigned Physician: Rosa Brown Reviewed and Electronically Signed By: Rosa Brown Signed Date: 05/11/2024 14:35 ET Workstation ID: [id number] Transcribed By: Self Edit Transcribed Date: 05/11/2024 14:33 ET Narrative 05/11/2024 2:35 PM EDT LUMBOSACRAL SPINE, ??4 VIEWS INCLUDING OBLIQUES HISTORY: ??Foot pain. FINDINGS: There is normal alignment of the lumbosacral spine. ??No fractures are seen. No gross degenerative changes. There are surgical clips in the right upper quadrant. Procedure Note Rosa Brown MD - 05/11/2024 LUMBOSACRAL SPINE, 4 VIEWS INCLUDING OBLIQUES HISTORY: Foot pain. FINDINGS: There is normal alignment of the lumbosacral spine. No fractures areseen. No gross degenerative changes. There are surgical clips in the right upper quadrant. IMPRESSION: No acute findings. -------- FINAL REPORT -------- Dictated By: Rosa Brown Dictated Date: 05/11/2024 14:33 ET Assigned Physician: Rosa Brown Reviewed and Electronically Signed By: Rosa Brown Signed Date: 05/11/2024 14:35 ET Workstation ID: [id number] Transcribed By: Self Edit Transcribed Date: 05/11/2024 14:33 ET Jesse Sonja Rand DPM IMG XR PROCEDURES Final Res ult * XR Ankle 3+ Views Left (05/11/2024 2:29 PM EDT) Anatomical Region Laterality Modality Lower Extremities, Ankle Left Compute d Radiography Narrative 05/23/2024 10:29 AM EDT Left ankle 3 views weightbearing: No fractures or dislocations. ??Joint spaces are within normal limits. ??Tib-fib overlap adequate. ??Some spurring over the navicular prominence at the TN joint. Jesse Casillas Giorgi DPM IMG XR PROCEDURES Final Res ult * XR Foot 3+ Views Right (05/11/2024 2:28 PM EDT) Anatomical Region Laterality Modality Lower Extremities, Foot Right Computed Radiography Narrative 05/23/2024 10:28 AM EDT Right foot 3 views weightbearing: Slight osteopenia. ??No fractures dislocations. ??Metatarsus adductus with slight increase in 1-2 intermetatarsal angle. ??Anterior break in the cyma line. ??Some sclerosis in the subtalar joint. Jesse Rand DPM IMG XR PROCEDURES Final Res ult from Last 3 Months Insurance [facility] [employer] PLANS Care Teams Director Patient Relationship Specialty Start Date End Date Veena Beltran MD PCP - General Internal Medicine 10/31/21
--- OUTSIDE RECORDS SUMMARY | 2024-06-10 13:19 | XMS_ITS | Clinical Summary ---
Author Organization [facility] Facility Address [address] [place] [address] Care Team Providers Care Transportation Sales Consultant Name Role Phone Veena eBltran MD Primary Care Provider [phone] Allergies No known active allergies Medications omega-3 [...] Proteinuria 06/07/2020 Vitamin D deficiency 06/07/2020 Immunizations Immunization Administration Dates Next Due Tdap 04/30/2012 Family [...] Comments Breast Cancer Screening 1970 Hepatitis B Vaccine (1 of 3 - 19+ 3-dose series) 11/29 Pneumococcal Vaccine: 50+ Years (1 of 2 - PCV) 990 Colorectal Cancer Screening: Annual FOBT 11/30/2019 Colorectal Cancer Screening: Colonoscopy 11/30/2019 Colorectal Cancer Screening: Sigmoidoscopy 11/30/2019 Influenza Vaccine (Season Ended) 2024 Care Teams Transportation Sales Consultant Relationship Specialty Start Date End Date Veena Beltran MD [facility] [place] [address] PCP - General 03/07/20
== END 2024-06-10 11:06 | disposition home or self-care (01) ==
LOC: HO.LAB 11:05
PROVIDERS: PCP Internal Medicine; Visit Provider Internal Medicine
DX: E78.5 Hyperlipidemia, unspecified (principal); I10 Essential (primary) hypertension; E03.9 Hypothyroidism, unspecified
CPT/HCPCS: 36415; 80053; 80061; 82306; 82607; 82746; 83036; 84443

== ENCOUNTER 2024-06-17 10:50 | Outpatient (REF) | payer OTHER, SELFPAY ==
--- OUTSIDE RECORDS SUMMARY | 2024-06-17 14:34 | XMS_ITS | Clinical Summary ---
Author Organization [facility] Facility Address [address] [place] [address] Care Team Providers Care Work Order Sorting Clerk Name Role Phone Veena Beltran MD Primary Care Provider [phone] Allergies No known active allergies Medications omega-3 [...] Influenza Vaccine (Season Ended) 2024 Care Teams Work Order Sorting Clerk Relationship Specialty Start Date End Date Veena Beltran MD [place] [address] PCP - General 03/07/20
--- OUTSIDE RECORDS SUMMARY | 2024-06-17 14:34 | XMS_ITS | Clinical Summary ---
Author Organization [address] [place] [address] Address [address] [place] [address] Phone Care Team Providers Care Physiologist Name Role Phone Veena Beltran MD Primary Care Provider [phone] Allergies No known active allergies Medications levothyroxine (SYNTHROID, LEVOTHROID) 75 mcg tablet levothyroxine 75 mcg tablet Active Encounters Date Type Department Care Team Description 05/11/2024 1:45 PM EDT Consult Orthopedic Surgery [facility] [address] [facility] [address] [place] [phone] Jesse Rand, DPM Teddy's deformity of left heel (Primary Dx); Achilles tendinitis of left lower extremity; Bunion of great toe of right foot; Lumbosacral radiculopathy from Last 3 Months Surgical History Surgery Date Site/Laterality Comments SECTION PROCEDURE: [place] DELIVERY ONLY OTHER SURGICAL HISTORY 2016 Bilateral [...] Signed Date: 05/11/2024 14:35 ET Workstation ID: [id number] Transcribed By: Self Edit Transcribed Date: 05/11/2024 [...] Signed Date: 05/11/2024 14:35 ET Workstation ID: [id number] Transcribed By: Self Edit Transcribed Date: 05/11/2024 [...] Res ult from Last 3 Months Insurance [facility] Compl[employer] PLANS Care Teams Physiologist Relationship Specialty Start Date End Date Veena Beltran MD PCP - General Internal Medicine 10/31/21
[2024-06-23 14:58] LABS: HPV Genotype 16 Negative (Negative); HPV Genotype 18 Negative (Negative); HPV High Risk Negative (Negative)
== END 2024-06-17 10:51 | disposition home or self-care (01) ==
LOC: HO.LNP 10:50
PROVIDERS: PCP Internal Medicine; Visit Provider Internal Medicine
DX: Z00.00 Encounter for general adult medical examination without abnormal findings (principal); R00.2 Palpitations; I10 Essential (primary) hypertension; E03.9 Hypothyroidism, unspecified; E66.3 Overweight; Z68.34 Body mass index [BMI] 34.0-34.9, adult; Z12.4 Encounter for screening for malignant neoplasm of cervix; Z11.51 Encounter for screening for human papillomavirus (HPV)
CPT/HCPCS: 87626; 88175; 96127; 99212

== ENCOUNTER 2024-06-17 10:50 | Outpatient (AMB) | payer OTHER, SELFPAY ==
--- NOTE | 2024-06-17 10:53 | MHC.PC.OV ---
Vital Signs 06/17/24 10:54 Height 5 ft 2 in Weight 187 lb BMI 34.2 BP 140/86 H Blood Pressure Location Lt brachial Position Sitting Respiration 18 Pulse 67 Pulse Source Pulse Oximeter Temp 98.4 F Temp Source Oral Pulse Oximetry (%) 97 Oxygen Delivery Method Room Air Intake Visit Reasons: 3 months f/up Intake Note: Pt is here today for a 3 months follow up visit. Pt states that she s due to pap. Allergies No Known Allergies Allergy (Verified 06/17/24 10:57) Medication List - Last Reconciled 06/17/24 by Veena Beltran MD cholecalciferol (vitamin D3) 50 mcg PO DAILY cholecalciferol (vitamin D3) 1,250 mcg PO QWEEK levothyroxine 88 mcg PO DAILY losartan 100 mg PO BEDTIME mecobalamin (vitamin B12) 1,000 mcg PO DAILY Tobacco use date assessed: 06/17/24 Dental Screening Dental Screen Date: 06/17/24 Did you have a dental visit in the last 12 months?: Yes Did you have a dental problem in the last 6 months where you did not have access to dental care?: No Was dental information given to patient?: Patient has dentist HPI 3 months f/up HPI Details Patient presents for the follow-up on hypertension and hypothyroid. She has been increasing physical activity decreasing caloric intake for over 6 months trying to lose weight unsuccessfully. She would like to try GLP 1 agonist to facilitate weight loss. Patient reports episodes of palpitations on and off not related to physical activity. She denies shortness or breath or chest pain related to palpitations. Patient reports not hot flashes on and off but they becoming less frequent [facility] Medical History Normal breast exam Annual physical exam Abnormal colonoscopy Menopausal and female climacteric states HTN (hypertension) Proteinuria White coat syndrome with diagnosis of hypertension Hypercholesterolemia Vitamin D deficiency IUD (intrauterine device) in place Hypothyroidism Surgical History Hx of cholecystectomy History of section History of breast lift Family History Father Colitis HTN (hypertension) CVD (cardiovascular disease) Mother Breast cancer Sister No problems noted. Son No problems noted. Son No problems noted. Social History Housing: House Patient Tobacco Use Status: Never used Tobacco e-Cigarette/Vaping Use: Never Used service: No Current occupational status: unemployed Cognitive needs: No Hearing needs: No Vision needs: No Questionnaire PHQ-9 Over the last 2 weeks, how often have you been bothered by any of the following problems? 1. Little interest or pleasure in doing things: not at all 2. Feeling down, depressed, or hopeless: not at all 3. Trouble falling or staying asleep, or sleeping too much: not at all 4. Feeling tired or having little energy: not at all 5. Poor appetite or overeating: not at all 6. Feeling bad about yourself - or that you are a failure or have let yourself or your family down: not at all 7. Trouble concentrating on things, such as reading the newspaper or watching television: not at all 8. Moving or speaking so slowly that other people could have noticed. Or the opposite - being so fidgety or restless that you have been moving around a lot more than usual: not at all 9. Thoughts that you would be better off or of hurting yourself in some way: not at all Total score: 0 Depression Screening Interpretation: Negative Depression Screening Done: Yes 92264 - PHQ-9 Billing: Yes Source: Developed by Drs. Sidney Mike, Staci Holland, Wai Palacio and colleagues, with an educational samantha from [employer]. Thrive Questionnaire Date Thrive assessed: 03/18/24 I am a: Patient What is your living situation today?: I have a steady place to live Within the past 12 months, did the food you bought not last and you didn't have the money to get more?: Never true Within the past 12 months, did you worry whether your food would run out before you got money to buy more?: Never true Do you have trouble paying for medicines?: No Do you have trouble getting transportation to medical appointments?: No Do you have trouble paying your heating and electricity bill?: No Do you have trouble taking care of your child, family member or friend?: No Do you have trouble with day-to-day activities such as bathing, preparing meals, shopping, managing finances, etc.?: No Are you currently unemployed and looking for a job?: I choose not to answer this question Are you interested in more education?: No Please select the resources that you would like help with: None Currently or been in a relationship where the following occur: No concerns reported THRIVE Score: 0 AUDIT C Alcohol Use Questionnaire (AUDIT-C) 1. How often do you have a drink containing alcohol?: Monthly or less 2. How many drinks containing alcohol do you have on a typical day when you are drinking?: 1 or 2 3. How often do you have six or more drinks on one occasion?: Never Total Score: 1 KIRAN-7 AMB Questionnaire KIRAN-7 Date KIRAN - 7 assessed: 03/18/24 Feeling nervous, anxious, or on edge: 0 = Not at all Not being able to stop or control worryin = Not at all Worrying too much about different things: 0 = Not at all Trouble relaxin = Not at all Being so restless that it is hard to sit still: 0 = Not at all Becoming easily annoyed or irritable: 0 = Not at all Feeling afraid as if something awful might happen: 0 = Not at all Total KIRAN-7 score (0-4 normal; 5-9 mild; 10-14 moderate; 15-21 severe): 0 Source: Developed by Drs. Sidney Mike, Staci Holland, Wai Palacio and colleagues, with an educational samantha from [employer]. Review of Systems Const All systems reviewed & are unremarkable except as noted in HPI and below Eyes Reports no additional complaints ENT Reports no additional complaints Card Reports no additional complaints Resp Reports no additional complaints GI Reports no additional complaints Reports no additional complaints Physical exam (Primary Care) Vital Signs: Last Vital Signs Temp 98.4 F 06/17/24 10:54 Pulse 67 06/17/24 10:54 Resp 18 06/17/24 10:54 BP 140/86 H 06/17/24 10:54 Pulse Ox 97 06/17/24 10:54 Oxygen Delivery Method Room Air 06/17/24 10:54 BMI result Body Mass Index 34.2 Tobacco/Smoking Status: Tobacco use Status Tobacco use date assessed 06/17/24 06/17/24 11:02 Patient Tobacco Use Status Never used Tobacco 06/17/24 10:55 e-Cigarette/Vaping Use Never Used 06/17/24 10:55 PHQ-9: PHQ-9 Score PHQ-9: Total score 0 06/17/24 10:55 Depression Screening Interpretation: Negative Thrive Assessment: Date of Thrive Assessment Date Thrive assessed 03/18/24 06/17/24 10:55 Currently or been in a relationship where the following occur: No concerns reported Const General: no acute distress HENMT Ears: hearing grossly normal bilaterally Eyes General: appearance normal, both eyes and all related structures Resp Effort & Inspection: normal respiratory effort Auscultation: clear to auscultation bilaterally Cardio Rhythm: regular rhythm Heart sounds: S1 normal heart sound present and S2 normal heart sound present GI Inspection: Yes normal to inspection Palpation (GI): Soft to palpation Percussion: Yes normal to percussion Auscultation: normal bowel sounds External Female Exam: normal external appearance Speculum Exam - Vagina: normal appearance of the vagina Speculum Exam - Cervix: normal appearance of the cervix Bimanual exam- vagina & uterus: normal bimanual exam Extrem General: Yes no clubbing, cyanosis or edema Coding Level of Care Code Est Pt Level 4 (53586) Diagnoses Palpitations R00.2 Annual physical exam Z00.00 HTN (hypertension) I10 Hypothyroidism E03.9 Overweight E66.3 Additional Codes PHQ-9 - 61988 - PHQ-9 Billing: Yes ([id number]) Assessment & Plan Assessment & Plan (1) Palpitations: Code(s): R00.2 - Palpitations Category: Medical Plan: Obtain 3 day Holter (2) Annual physical exam: Code(s): Z00.00 - Encounter for general adult medical examination without abnormal findings Category: Medical Plan: Pap smear was done today (3) HTN (hypertension): Code(s): I10 - Essential (primary) hypertension Category: Medical Plan: Change losartan to valsartan 320 mg, f/u 6 weeks (4) Hypothyroidism: Comment: dx: 2013, nl thyroid US 2018 Code(s): E03.9 - Hypothyroidism, unspecified Category: Medical Plan: cont levothyroxine (5) Overweight: Comment: BMI 34.2 Code(s): E66.3 - Overweight Category: Medical Plan: Zepbound 2.5 mg weekly will be started to facilitate weight loss. Patient will continue decreasing caloric intake and regular physical activity follow-up in 6 weeks Orders: Orders ECG 3 day holter monitor Today R00.2 - Palpitations Pap Smear Today Z00.00 - Encounter for general adult medical examination without abnormal findings Referrals Gastroenterology Referral R93.3 - Abnormal findings on diagnostic imaging of other parts of digestive tract Medications: New valsartan 320 mg PO DAILY 90 tabs 0RF Zepbound (tirzepatide (weight loss)) 2.5 mg (0.5 mL) subcut QWEEK 2 mL 1RF NS Discontinued losartan Discontinued Reason: Doctor's Order 100 mg PO BEDTIME 90 tabs 3RF
[2024-06-17 10:54] VITALS: BP 140/86; PULSE 67; RESP 18; TEMP 36.9; O2SAT 97; BMI 34.2
--- OUTSIDE RECORDS SUMMARY | 2024-06-17 12:57 | XMS_ITS | Clinical Summary ---
Author Organization [address] [place] [address] Address [address] [place] [address] Phone Care Team Providers Care Dock Associate Name Role Phone Veena Beltran MD Primary Care Provider [phone] Allergies No known active allergies Medications levothyroxine (SYNTHROID, LEVOTHROID) 75 mcg tablet levothyroxine 75 mcg tablet Active Encounters Date Type Department Care Team Description 05/11/2024 1:45 PM EDT Consult Orthopedic Surgery [facility] [address] [facility] [address] [place] [phone] Jesse Rand, DPM Teddy's deformity of left heel (Primary Dx); Achilles tendinitis of left lower extremity; Bunion of great toe of right foot; Lumbosacral radiculopathy from Last 3 Months Surgical History Surgery Date Site/Laterality Comments SECTION PROCEDURE: [place] DELIVERY ONLY OTHER SURGICAL HISTORY 2016 Bilateral [...] Signed Date: 05/11/2024 14:35 ET Workstation ID: [id number] Transcribed By: Self Edit Transcribed Date: 05/11/2024 [...] Signed Date: 05/11/2024 14:35 ET Workstation ID: [id number] Transcribed By: Self Edit Transcribed Date: 05/11/2024 [...] Res ult from Last 3 Months Insurance [facility] [employer] PLANS Care Teams Dock Associate Relationship Specialty Start Date End Date Veena Beltran MD PCP - General Internal Medicine 10/31/21
--- OUTSIDE RECORDS SUMMARY | 2024-06-17 12:57 | XMS_ITS | Clinical Summary ---
Author Organization [facility] Facility Address [address] [place] [address] Care Team Providers Care Medical Education Coordinator Name Role Phone Veena Beltran MD Primary Care Provider [phone] Allergies No known active allergies Medications omega-3 [...] Influenza Vaccine (Season Ended) 2024 Care Teams Medical Education Coordinator Relationship Specialty Start Date End Date Veena Beltran MD [place] [address] PCP - General 03/07/20
== END 2024-06-17 12:06 | disposition home or self-care (01) ==
LOC: HO.HMCC 10:50
PROVIDERS: PCP Internal Medicine; Visit Provider Internal Medicine
DX: R00.2 Palpitations (principal); Z00.00 Encounter for general adult medical examination without abnormal findings; I10 Essential (primary) hypertension; E03.9 Hypothyroidism, unspecified; E66.3 Overweight

== ENCOUNTER → 2024-06-22 11:36 | Outpatient (REF) | payer OTHER, SELFPAY ==
--- OUTSIDE RECORDS SUMMARY | 2024-06-22 14:00 | XMS_ITS | Clinical Summary ---
Author Organization [facility] Facility Address [address] [place] [address] Care Team Providers Care Creative Guru Name Role Phone Veena Beltran MD Primary Care Provider [phone] Allergies No known active allergies Medications omega-3 [...] Influenza Vaccine (Season Ended) 2024 Care Teams Creative Guru Relationship Specialty Start Date End Date Veena Beltran MD [facility] [place] [address] PCP - General 03/07/20
--- OUTSIDE RECORDS SUMMARY | 2024-06-22 14:00 | XMS_ITS | Clinical Summary ---
Author Organization [address] [place] [address] Address [address] [place] [address] Phone Care Team Providers Care Mechanical Technical Service Specialist Name Role Phone Veena Beltran MD Primary Care Provider [phone] Allergies No known active allergies Medications levothyroxine (SYNTHROID, LEVOTHROID) 75 mcg tablet levothyroxine 75 mcg tablet Active Encounters Date Type Department Care Team Description 05/11/2024 1:45 PM EDT Consult Orthopedic Surgery [facility] [address] [facility] [address] [place] [phone] Jesse Rand, DPM Teddy's deformity of left heel (Primary Dx); Achilles tendinitis of left lower extremity; Bunion of great toe of right foot; Lumbosacral radiculopathy from Last 3 Months Surgical History Surgery Date Site/Laterality Comments SECTION PROCEDURE: [place] DELIVERY ONLY OTHER SURGICAL HISTORY 2016 Bilateral [...] Signed Date: 05/11/2024 14:35 ET Workstation ID: [id number] Transcribed By: Self Edit Transcribed Date: 05/11/2024 [...] Signed Date: 05/11/2024 14:35 ET Workstation ID: [id number] Transcribed By: Self Edit Transcribed Date: 05/11/2024 [...] Res ult from Last [address] [facility] [employer] PLANS Care Teams Mechanical Technical Service Specialist Relationship Specialty Start Date End Date Veena Beltran MD PCP - General Internal Medicine 10/31/21
== END ==
LOC: HO.CARD 11:36
PROVIDERS: PCP Internal Medicine; Visit Provider Internal Medicine
DX: R00.2 Palpitations (principal)
CPT/HCPCS: 93242

== ENCOUNTER → 2024-06-22 11:39 | Outpatient (BNV) | payer OTHER, SELFPAY | PROVIDERS: PCP Internal Medicine; Visit Provider Internal Medicine | DX: I49.3 Ventricular premature depolarization (principal) | CPT/HCPCS: 93244 ==

== ENCOUNTER 2024-07-29 14:15 | Outpatient (AMB) | payer OTHER, SELFPAY ==
--- OUTSIDE RECORDS SUMMARY | 2024-07-29 14:18 | XMS_ITS | Clinical Summary ---
Author Organization [facility] Facility Address [address] [place] [address] Care Team Providers Care Nurse Specialist Name Role Phone Veena Beltran MD Primary Care Provider [phone] Allergies No known active allergies Medications omega-3 [...] Influenza Vaccine (Season Ended) 2024 Care Teams Nurse Specialist Relationship Specialty Start Date End Date Veena Beltran MD [facility] [place] [address] PCP - General 03/07/20
--- NOTE | 2024-07-29 14:24 | MHC.PC.OV ---
Vital Signs 07/29/24 14:30 Height 5 ft 2 in Weight 176 lb BMI 32.2 BP 114/76 Blood Pressure Location Lt brachial Position Sitting Respiration 18 Pulse 75 Pulse Source Pulse Oximeter Temp 98.7 F Temp Source Oral Pulse Oximetry (%) 98 Oxygen Delivery Method Room Air Intake Visit Reasons: Follow up Intake Note: Pt is here today for a follow up visit on HTN and weight. Allergies No Known Allergies Allergy (Verified 07/29/24 14:34) Medication List - Last Reconciled 07/29/24 by Veena Beltran MD cholecalciferol (vitamin D3) 50 mcg PO DAILY cholecalciferol (vitamin D3) 1,250 mcg PO QWEEK levothyroxine 88 mcg PO DAILY mecobalamin (vitamin B12) 1,000 mcg PO DAILY valsartan 320 mg PO DAILY Zepbound (tirzepatide (weight loss)) 2.5 mg (0.5 mL) subcut QWEEK NS Tobacco use date assessed: 07/29/24 Dental Screening Dental Screen Date: 06/17/24 HPI Follow up HPI Details Patient presents for the follow-up on hypertension better controlled on valsartan. She started Zepbound 4 weeks ago and reports some nausea but otherwise has been tolerating medication well. Patient complains of chronic right knee pain and swelling. She had MRI last July and was given cortisone injection with only temporary relief. The pain is worse when walking but also occasionally at night. [facility] Medical History (Updated 07/29/24 @ 15:12 by Veena Beltran MD) Knee pain, right Overweight Normal breast exam Annual physical exam Abnormal colonoscopy Menopausal and female climacteric states HTN (hypertension) Proteinuria White coat syndrome with diagnosis of hypertension Hypercholesterolemia Vitamin D deficiency IUD (intrauterine device) in place Hypothyroidism Surgical History Hx of cholecystectomy History of section History of breast lift Family History Father Colitis HTN (hypertension) CVD (cardiovascular disease) Mother Breast cancer Sister No problems noted. Son No problems noted. Son No problems noted. Social History Housing: House Patient Tobacco Use Status: Never used Tobacco e-Cigarette/Vaping Use: Never Used service: No Current occupational status: unemployed Cognitive needs: No Hearing needs: No Vision needs: No Questionnaire Thrive Questionnaire Date Thrive assessed: 06/17/24 I am a: Patient What is your living situation today?: I have a steady place to live Within the past 12 months, did the food you bought not last and you didn't have the money to get more?: Never true Within the past 12 months, did you worry whether your food would run out before you got money to buy more?: Never true Do you have trouble paying for medicines?: No Do you have trouble getting transportation to medical appointments?: No Do you have trouble paying your heating and electricity bill?: No Do you have trouble taking care of your child, family member or friend?: No Do you have trouble with day-to-day activities such as bathing, preparing meals, shopping, managing finances, etc.?: No Are you currently unemployed and looking for a job?: I choose not to answer this question Are you interested in more education?: No Please select the resources that you would like help with: None Currently or been in a relationship where the following occur: No concerns reported THRIVE Score: 0 KIRAN-7 AMB Questionnaire KIRAN-7 Date KIRAN - 7 assessed: 03/18/24 Source: Developed by Drs. Sidney Mike, Staci Holland, Wai Palacio and colleagues, with an educational samantha from [employer]. Review of Systems Const All systems reviewed & are unremarkable except as noted in HPI and below Eyes Reports no additional complaints ENT Reports no additional complaints Card Reports no additional complaints Resp Reports no additional complaints GI Reports no additional complaints Reports no additional complaints Physical exam (Primary Care) Vital Signs: Last Vital Signs Temp 98.7 F 07/29/24 14:30 Pulse 75 07/29/24 14:30 Resp 18 07/29/24 14:30 BP 114/76 07/29/24 14:30 Pulse Ox 98 07/29/24 14:30 Oxygen Delivery Method Room Air 07/29/24 14:30 BMI result Body Mass Index 32.2 Tobacco/Smoking Status: Tobacco use Status Tobacco use date assessed 07/29/24 07/29/24 14:38 Patient Tobacco Use Status Never used Tobacco 07/29/24 14:24 e-Cigarette/Vaping Use Never Used 07/29/24 14:24 Thrive Assessment: Date of Thrive Assessment Date Thrive assessed 06/17/24 07/29/24 14:24 Currently or been in a relationship where the following occur: No concerns reported Const General: no acute distress Eyes General: appearance normal, both eyes and all related structures Neck Neck: Yes no lymphadenopathy and Yes supple Resp Effort & Inspection: normal respiratory effort Auscultation: clear to auscultation bilaterally Cardio Rhythm: regular rhythm Heart sounds: S1 normal heart sound present and S2 normal heart sound present Extrem Other: There is a decreased range of motion crepitus of the right knee. There is a tenderness over lateral and medial aspect. There is no soft tissue swelling erythema. Coding Level of Care Code Est Pt Level 4 (15288) Diagnoses Knee pain, right M25.561 HTN (hypertension) I10 Overweight E66.3 Assessment & Plan Assessment & Plan (1) Knee pain, right: Code(s): M25.561 - Pain in right knee Category: Medical Plan: Check x-ray of right knee referred to physical therapy if there significant osteoarthritis patient will be referred to orthopedist (2) HTN (hypertension): Code(s): I10 - Essential (primary) hypertension Category: Medical Plan: Continue valsartan check BMP today (3) Overweight: Comment: BMI 34.2 , started Zepbound 06/2024 Code(s): E66.3 - Overweight Category: Medical Plan: Continue Zepbound 2.5 mg weekly. Patient will follow-up in 1 month Orders: Orders XR knee RT 3V Today M25.561 - Pain in right knee PT Evaluation and Treatment Today M25.561 - Pain in right knee Basic Metabolic Panel Today I10 - Essential (primary) hypertension
[2024-07-29 14:30] VITALS: BP 114/76; PULSE 75; RESP 18; TEMP 37.1; O2SAT 98; BMI 32.2
== END 2024-07-29 15:03 | disposition home or self-care (01) ==
LOC: HO.HMCC 14:16
PROVIDERS: PCP Internal Medicine; Visit Provider Internal Medicine
DX: M25.561 Pain in right knee (principal); I10 Essential (primary) hypertension; E66.3 Overweight

== ENCOUNTER 2024-07-29 14:15 | Outpatient (REF) | payer OTHER, SELFPAY ==
--- NOTE | ~2024-07-29 | XR_ITS ---
EXAMINATION: XR KNEE, RIGHT CLINICAL INFORMATION: M25.561 - Pain in right knee COMPARISON: None available. TECHNIQUE: Three views of the right knee. FINDINGS: No fracture, dislocation, or suspicious bone lesion. There is a bone island in the posterior lateral femoral condyle. The joint spaces appear preserved. There is normal alignment. There is a moderate sized suprapatellar joint effusion. The soft tissues appear normal. XR/XR knee RT 3V IMPRESSION: 1. Moderate sized suprapatellar joint effusion. Otherwise normal exam. Electronically signed by: Nuno Luque MD 07/30/2024 09:56 AM EDT
[2024-07-29 16:26] LABS: Anion Gap 13 (12-20); Blood Urea Nitrogen 15 mg/dL (9-16); Calcium 9.8 mg/dL (8.4-10.2); Carbon Dioxide 28 mmol/L (22-29); Chloride 107 mmol/L (96-108); Estimated Glomerular Filt Rate > 60; Glucose Random 93 mg/dL (60-115); Potassium 4.4 mmol/L (3.3-5.1); Sodium 144 mmol/L (135-145)
== END 2024-07-29 14:16 | disposition home or self-care (01) ==
LOC: HO.HMGCX 14:15
PROVIDERS: PCP Internal Medicine; Visit Provider Internal Medicine
DX: I10 Essential (primary) hypertension (principal); M25.561 Pain in right knee
CPT/HCPCS: 36415; 73562; 80048; 99212

== ENCOUNTER → 2024-07-29 15:13 | Outpatient (BNV) | payer OTHER, SELFPAY | PROVIDERS: PCP Internal Medicine; Visit Provider Radiology Diagnostic Radiology | DX: M25.461 Effusion, right knee (principal) | CPT/HCPCS: 73562 ==

== ENCOUNTER 2024-08-27 14:07 | Outpatient (AMB) | payer OTHER, SELFPAY ==
--- OUTSIDE RECORDS SUMMARY | 2024-08-27 14:12 | XMS_ITS | Clinical Summary ---
Author Organization [address] [place] [address] Address [address] [place] [address] Phone Care Team Providers Care Sledger Name Role Phone Veena Beltran MD Primary Care Provider [phone] Allergies No known active allergies Medications levothyroxine (SYNTHROID, LEVOTHROID) 75 mcg tablet levothyroxine 75 mcg tablet Active Surgical History Surgery Date Site/Laterality Comments SECTION PROCEDURE: [place] DELIVERY ONLY OTHER SURGICAL HISTORY 2015 Bilateral [...] on patient's age to complete this topic Insurance [facility] [employer] Care Teams Sledger Relationship Specialty Start Date End Date Veena Beltran MD PCP - General Internal Medicine 10/31/21
--- OUTSIDE RECORDS SUMMARY | 2024-08-27 14:12 | XMS_ITS | Clinical Summary ---
Author Organization [facility] Facility Address [address] [place] [address] Care Team Providers Care Alumni Coordinator Name Role Phone Veena Beltran MD Primary Care Provider [phone] Allergies No known active allergies Medications omega-3 [...] Influenza Vaccine (Season Ended) 2024 Care Teams Alumni Coordinator Relationship Specialty Start Date End Date Veena Beltran MD [facility] [place] [address] PCP - General 03/07/20
--- NOTE | 2024-08-27 14:13 | MHC.PC.OV ---
Vital Signs 08/27/24 14:15 Height 5 ft 2 in Weight 171 lb BMI 31.3 BP 120/80 Blood Pressure Location Lt brachial Position Sitting Respiration 18 Pulse 77 Pulse Source Pulse Oximeter Temp 98.5 F Temp Source Oral Pulse Oximetry (%) 97 Oxygen Delivery Method Room Air Intake Visit Reasons: 1m follow up Intake Note: Pt is here today for 1 month follow up visit. Allergies No Known Allergies Allergy (Verified 08/27/24 14:17) Medication List - Last Reconciled 08/27/24 by Veena Beltran MD cholecalciferol (vitamin D3) 50 mcg PO DAILY cholecalciferol (vitamin D3) 1,250 mcg PO QWEEK levothyroxine 88 mcg PO DAILY mecobalamin (vitamin B12) 1,000 mcg PO DAILY valsartan 320 mg PO DAILY Zepbound (tirzepatide (weight loss)) 5 mg (0.5 mL) subcut QWEEK NS Tobacco use date assessed: 08/27/24 Dental Screening Dental Screen Date: 08/27/24 Did you have a dental visit in the last 12 months?: Yes Did you have a dental problem in the last 6 months where you did not have access to dental care?: No Was dental information given to patient?: Patient has dentist HPI 1m follow up HPI Details Patient presents for the follow-up of right knee pain improved significantly but patient is still has a limited range of motion and would like to try physical therapy. Hypertension and hypothyroidism controlled on current medications. Patient has been taking Zepbound 2.5 mg weekly for 2 months and lost 17 lb. She has been decreasing caloric intake and increasing physical activity [facility] Medical History Knee pain, right Overweight Normal breast exam Annual physical exam Abnormal colonoscopy Menopausal and female climacteric states HTN (hypertension) Proteinuria White coat syndrome with diagnosis of hypertension Hypercholesterolemia Vitamin D deficiency IUD (intrauterine device) in place Hypothyroidism Surgical History Hx of cholecystectomy History of section History of breast lift Family History Father Colitis HTN (hypertension) CVD (cardiovascular disease) Mother Breast cancer Sister No problems noted. Son No problems noted. Son No problems noted. Social History Housing: House Patient Tobacco Use Status: Never used Tobacco e-Cigarette/Vaping Use: Never Used Second Hand Smoke Exposure: No service: No Current occupational status: unemployed Cognitive needs: No Hearing needs: No Vision needs: No Questionnaire Thrive Questionnaire Date Thrive assessed: 06/17/24 I am a: Patient What is your living situation today?: I have a steady place to live Within the past 12 months, did the food you bought not last and you didn't have the money to get more?: Never true Within the past 12 months, did you worry whether your food would run out before you got money to buy more?: Never true Do you have trouble paying for medicines?: No Do you have trouble getting transportation to medical appointments?: No Do you have trouble paying your heating and electricity bill?: No Do you have trouble taking care of your child, family member or friend?: No Do you have trouble with day-to-day activities such as bathing, preparing meals, shopping, managing finances, etc.?: No Are you currently unemployed and looking for a job?: I choose not to answer this question Are you interested in more education?: No Please select the resources that you would like help with: None Currently or been in a relationship where the following occur: No concerns reported THRIVE Score: 0 KIRAN-7 AMB Questionnaire KIRAN-7 Date KIRAN - 7 assessed: 03/18/24 Source: Developed by Drs. Sidney Mike, Staci Holland, Wai Palacio and colleagues, with an educational samantha from [employer]. Review of Systems Const All systems reviewed & are unremarkable except as noted in HPI and below ENT Reports no additional complaints Card Reports no additional complaints Resp Reports no additional complaints GI Reports no additional complaints Reports no additional complaints Physical exam (Primary Care) Vital Signs: Last Vital Signs Temp 98.5 F 08/27/24 14:15 Pulse 77 08/27/24 14:15 Resp 18 08/27/24 14:15 BP 120/80 08/27/24 14:15 Pulse Ox 97 08/27/24 14:15 Oxygen Delivery Method Room Air 08/27/24 14:15 BMI result Body Mass Index 31.3 Tobacco/Smoking Status: Tobacco use Status Tobacco use date assessed 08/27/24 08/27/24 14:19 Patient Tobacco Use Status Never used Tobacco 08/27/24 14:15 e-Cigarette/Vaping Use Never Used 08/27/24 14:15 Thrive Assessment: Date of Thrive Assessment Date Thrive assessed 06/17/24 08/27/24 14:15 Currently or been in a relationship where the following occur: No concerns reported Const General: no acute distress HENMT Head: Yes normal to inspection Neck Neck: Yes supple Resp Effort & Inspection: normal respiratory effort Auscultation: clear to auscultation bilaterally Cardio Rhythm: regular rhythm Heart sounds: S1 normal heart sound present and S2 normal heart sound present GI Inspection: Yes normal to inspection Palpation (GI): Soft to palpation Percussion: Yes normal to percussion Extrem Other: There is a decreased range of motion but no soft tissue swelling erythema warmth of the right knee General: Yes no clubbing, cyanosis or edema Coding Level of Care Code Est Pt Level 4 (86582) Diagnoses HTN (hypertension) I10 Overweight E66.3 Hypothyroidism E03.9 Knee pain, right M25.561 Assessment & Plan Assessment & Plan (1) HTN (hypertension): Code(s): I10 - Essential (primary) hypertension Category: Medical Plan: Continue Valsartan (2) Overweight: Comment: BMI 34.2 , started Zepbound 06/2024 Code(s): E66.3 - Overweight Category: Medical Plan: Increase Zepbound to 5 mg a a week continue decreasing caloric intake increasing physical activity follow-up in 2 months with fasting labs before (3) Hypothyroidism: Comment: dx: 2013, nl thyroid US 2017 Code(s): E03.9 - Hypothyroidism, unspecified Category: Medical Plan: Continue levothyroxine (4) Knee pain, right: Code(s): M25.561 - Pain in right knee Category: Medical Plan: Patient will schedule physical therapy Orders: Orders Lipid Panel 2 Months E03.9 - Hypothyroidism, unspecified, E55.9 - Vitamin D deficiency, unspecified, E78.5 - Hyperlipidemia, unspecified, I10 - Essential (primary) hypertension TSH reflex Free T4 2 Months E03.9 - Hypothyroidism, unspecified, E55.9 - Vitamin D deficiency, unspecified, E78.5 - Hyperlipidemia, unspecified, I10 - Essential (primary) hypertension Comprehensive [place]. Panel Fast 2 Months E03.9 - Hypothyroidism, unspecified, E55.9 - Vitamin D deficiency, unspecified, E78.5 - Hyperlipidemia, unspecified, I10 - Essential (primary) hypertension Complete Blood Count Auto Diff 2 Months E03.9 - Hypothyroidism, unspecified, E55.9 - Vitamin D deficiency, unspecified, E78.5 - Hyperlipidemia, unspecified, I10 - Essential (primary) hypertension Vitamin D 25-OH Total 2 Months E03.9 - Hypothyroidism, unspecified, E55.9 - Vitamin D deficiency, unspecified, E78.5 - Hyperlipidemia, unspecified, I10 - Essential (primary) hypertension Referrals Gastroenterology Referral Z00.00 - Encounter for general adult medical examination without abnormal findings Medications: New Zepbound (tirzepatide (weight loss)) 5 mg (0.5 mL) subcut QWEEK 2 mL 1RF NS Discontinued Zepbound (tirzepatide (weight loss)) Discontinued Reason: Doctor's Order 2.5 mg (0.5 mL) subcut QWEEK 2 mL 1RF NS
[2024-08-27 14:15] VITALS: BP 120/80; PULSE 77; RESP 18; TEMP 36.9; O2SAT 97; BMI 31.3
== END 2024-08-27 14:49 | disposition home or self-care (01) ==
LOC: HO.HMCC 14:08
PROVIDERS: PCP Internal Medicine; Visit Provider Internal Medicine
DX: I10 Essential (primary) hypertension (principal); E66.3 Overweight; E03.9 Hypothyroidism, unspecified; M25.561 Pain in right knee

== ENCOUNTER → 2024-08-27 14:07 | Outpatient (BNVA) | payer OTHER, SELFPAY | PROVIDERS: PCP Internal Medicine; Visit Provider Internal Medicine | DX: M25.561 Pain in right knee (principal); I10 Essential (primary) hypertension; E03.9 Hypothyroidism, unspecified; E66.3 Overweight; Z68.31 Body mass index [BMI] 31.0-31.9, adult | CPT/HCPCS: 99212 ==

== ENCOUNTER 2024-10-23 11:07 | Outpatient (REF) | payer OTHER, SELFPAY ==
[2024-10-23 11:23] LABS: MANUAL DIFF FLAG NO
--- OUTSIDE RECORDS SUMMARY | 2024-10-23 11:50 | XMS_ITS | Clinical Summary ---
Author Organization [address] [facility] Address [address] [place] [address] Phone Care Team Providers Care Process Manufacturing Engineer Name Role Phone Veena Beltran MD Primary Care Provider Allergies No known active allergies Medications levothyroxine (SYNTHROID, LEVOTHROID) 75 mcg tablet levothyroxine 75 mcg tablet Active cholecalcifero l (Vitamin D3) 50 mcg (2,000 unit) capsule Take 1 capsule (2,000 Units total) by mouth 1 (one) time each day. Active mecobalamin, vitamin B12, 1,000 mcg tablet,chewabl e Chew. Active tirzepatide, weight loss, (Zepbound) 5 mg/0.5 mL injection Inject 0.5 mL (5 mg total) under the skin every 7 (seven) days. Active Encounters Date Type Department Care Team Description 09/03/2024 Telephone Gastroenterology - [address] [place] [address] Charan Stephens MD from Last 3 Months Surgical History Surgery Date Site/Laterality Comments SECTION PROCEDURE: [place] DELIVERY ONLY OTHER SURGICAL HISTORY 2016 Bilateral [...] Panel) 01/24/2022 Colorectal Cancer Screening: Colonoscopy 01/24/2022 HIV Screening 01/24/2022 Hepatitis C Screening 01/24/2022 Social Influencers of Health Screening 01/24/2022 DTaP,Tdap,and Td Vaccines (2 - Td or Tdap) 04/30/2022 04/30/2012 COVID-19 Vaccine (3 - 2023-2 5 season) 2023 06/17/2020, 05/27/2020 Depression Screening 02/26/2024 Hypertension/CHF/CAD Annual BMP Blood Test 05/11/2024 12/28/2022 Influenza Vaccine (#1) 2024 03/23/2015 HIB Vaccines Aged Out No [...] patient's age to complete this topic Insurance [facility] [employer] PL[employer] [place] [id number] Care Teams Process Manufacturing Engineer Relationship Specialty Start Date End Date Veena Beltran MD PCP - General Internal Medicine 10/31/21
--- OUTSIDE RECORDS SUMMARY | 2024-10-23 11:50 | XMS_ITS | Clinical Summary ---
Author Organization [facility] Facility Address [address] [place] [address] Care Team Providers Care Veneer Jointer Returner Name Role Phone Veena Beltran MD Primary Care Provider [phone] Allergies No known active allergies Medications omega-3 [...] Cancer Screening: Sigmoidoscopy 11/30/2019 Influenza Vaccine (#1) 2024 Care Teams Veneer Jointer Returner Relationship Specialty Start Date End Date Veena Beltran MD [address] [place] [address] PCP - General 03/07/20
[2024-10-23 13:28] LABS: Hematocrit 42.4 % (37.0-47.0); Hemoglobin 14.4 g/dl (12.0-16.0); Imm Gran Abs Auto 0.02 X10*3/uL (0.00-0.03); Imm Gran Pct Auto 0.2 % (0.0-0.4); Lymphocytes Absolute Auto 3.4 X10*3/uL (1.2-4.9); Mean Corpuscular HGB Conc 34.0 g/dl (31.0-35.0); Mean Corpuscular Hemoglobin 29.4 pg (27.0-33.0); Mean Corpuscular Volume 86.5 fL (80.0-98.0); NRBC Abs Auto 0.000 X10*3/uL (0.0-0.012); NRBC Pct Auto 0.0 /100WBC (0.0-0.2); Platelet Count 376 X10*3/uL (160-400); Red Blood Count 4.90 X10*6/uL (4.20-5.50); White Blood Count 8.7 X10*3/uL (4.8-10.8)
[2024-10-23 13:30] LABS: Alanine Aminotransferase 23 U/L (0-31); Albumin Level 4.3 g/dL (3.5-5.0); Alkaline Phosphatase 56 U/L (39-117); Anion Gap 12 (12-20); Aspartate Amino Transferase 21 U/L (5-31); Blood Urea Nitrogen 13 mg/dL (9-16); Calcium 9.3 mg/dL (8.4-10.2); Carbon Dioxide 26 mmol/L (22-29); Chloride 109 mmol/L (96-108); Cholesterol 194 mg/dL (<200); Estimated Glomerular Filt Rate > 60; HDL Cholesterol 42 mg/dL (>40); Potassium 4.6 mmol/L (3.3-5.1); Sodium 142 mmol/L (135-145); Total Protein 7.4 g/dL (6.5-8.0); Triglycerides 133 mg/dL (<150)
== END 2024-10-23 11:08 | disposition home or self-care (01) ==
LOC: HO.LAB 11:07
PROVIDERS: PCP Internal Medicine; Visit Provider Internal Medicine
DX: I10 Essential (primary) hypertension (principal); E03.9 Hypothyroidism, unspecified; E78.5 Hyperlipidemia, unspecified; E55.9 Vitamin D deficiency, unspecified
CPT/HCPCS: 36415; 80053; 80061; 82306; 84443; 85025

== ENCOUNTER 2024-10-30 14:08 | Outpatient (AMB) | payer OTHER, SELFPAY ==
[2024-10-30 14:12] VITALS: BP 104/74; PULSE 76; RESP 18; TEMP 37.1; O2SAT 97; BMI 30.7
--- NOTE | 2024-10-30 14:12 | MHC.PC.OV ---
Vital Signs 10/30/24 14:12 Height 5 ft 2 in Weight 168 lb BMI 30.7 BP 104/74 Blood Pressure Location Lt brachial Position Sitting Respiration 18 Pulse 76 Pulse Source Pulse Oximeter Temp 98.8 F Temp Source Oral Pulse Oximetry (%) 97 Oxygen Delivery Method Room Air Intake Visit Reasons: 2m follow Intake Note: Pt is here today for 2 months follow up visit on weight loss and labs. Allergies No Known Allergies Allergy (Verified 08/27/24 14:17) Medication List - Last Reconciled 10/30/24 by Veena Beltran MD cholecalciferol (vitamin D3) 50 mcg PO DAILY cholecalciferol (vitamin D3) 1,250 mcg PO QWEEK levothyroxine 88 mcg PO DAILY mecobalamin (vitamin B12) 1,000 mcg PO DAILY valsartan 320 mg PO DAILY Zepbound (tirzepatide (weight loss)) 5 mg (0.5 mL) subcut QWEEK NS Tobacco use date assessed: 10/30/24 Dental Screening Dental Screen Date: 08/27/24 HPI 2m follow HPI Details Patient presents for the follow-up. She has been taking Zepbound for 3 months and lost 20 lb. She has been decreasing caloric intake increasing physical activity. Hypertension and hypothyroidism are controlled on current medications [facility] Medical History Vitamin D deficiency Knee pain, right Overweight Normal breast exam Annual physical exam Abnormal colonoscopy Menopausal and female climacteric states HTN (hypertension) Proteinuria White coat syndrome with diagnosis of hypertension Hypercholesterolemia IUD (intrauterine device) in place Hypothyroidism Surgical History Hx of cholecystectomy History of section History of breast lift Family History Father Colitis HTN (hypertension) CVD (cardiovascular disease) Mother Breast cancer Sister No problems noted. Son No problems noted. Son No problems noted. Social History Housing: House Patient Tobacco Use Status: Never used Tobacco e-Cigarette/Vaping Use: Never Used Second Hand Smoke Exposure: No service: No Current occupational status: unemployed Cognitive needs: No Hearing needs: No Vision needs: No Questionnaire Thrive Questionnaire Date Thrive assessed: 06/17/24 I am a: Patient What is your living situation today?: I have a steady place to live Within the past 12 months, did the food you bought not last and you didn't have the money to get more?: Never true Within the past 12 months, did you worry whether your food would run out before you got money to buy more?: Never true Do you have trouble paying for medicines?: No Do you have trouble getting transportation to medical appointments?: No Do you have trouble paying your heating and electricity bill?: No Do you have trouble taking care of your child, family member or friend?: No Do you have trouble with day-to-day activities such as bathing, preparing meals, shopping, managing finances, etc.?: No Are you currently unemployed and looking for a job?: I choose not to answer this question Are you interested in more education?: No Please select the resources that you would like help with: None Currently or been in a relationship where the following occur: No concerns reported THRIVE Score: 0 KIRAN-7 AMB Questionnaire KIRAN-7 Date KIRAN - 7 assessed: 03/18/24 Source: Developed by Drs. Sidney Mike, Staci Holland, Wai Palacio and colleagues, with an educational samantha from [employer]. Review of Systems Const All systems reviewed & are unremarkable except as noted in HPI and below Eyes Reports no additional complaints Card Reports no additional complaints Resp Reports no additional complaints GI Reports no additional complaints Reports no additional complaints Physical exam (Primary Care) Vital Signs: Last Vital Signs Temp 98.8 F 10/30/24 14:12 Pulse 76 10/30/24 14:12 Resp 18 10/30/24 14:12 BP 104/74 10/30/24 14:12 Pulse Ox 97 10/30/24 14:12 Oxygen Delivery Method Room Air 10/30/24 14:12 BMI result Body Mass Index 30.7 Tobacco/Smoking Status: Tobacco use Status Tobacco use date assessed 10/30/24 10/30/24 14:21 Patient Tobacco Use Status Never used Tobacco 10/30/24 14:21 e-Cigarette/Vaping Use Never Used 10/30/24 14:16 Thrive Assessment: Date of Thrive Assessment Date Thrive assessed 06/17/24 10/30/24 14:16 Currently or been in a relationship where the following occur: No concerns reported Const General: no acute distress HENMT Head: Yes normal to inspection Throat: Yes posterior oropharynx normal Eyes General: appearance normal, both eyes and all related structures Resp Effort & Inspection: normal respiratory effort Auscultation: clear to auscultation bilaterally Cardio Rhythm: regular rhythm Heart sounds: S1 normal heart sound present and S2 normal heart sound present GI Inspection: Yes normal to inspection Palpation (GI): Soft to palpation Percussion: Yes normal to percussion Coding Level of Care Code Est Pt Level 4 (38603) Diagnoses HTN (hypertension) I10 Overweight E66.3 Assessment & Plan Assessment & Plan (1) HTN (hypertension): Code(s): I10 - Essential (primary) hypertension Category: Medical Plan: Continue valsartan. Patient will be monitoring her blood pressure at home and if her readings are persistently below 100/60 valsartan dose will be decreased. (2) Overweight: Comment: BMI 34.2 , started Zepbound 06/2024 Code(s): E66.3 - Overweight Category: Medical Plan: Continue decreasing caloric intake and increasing physical activity. Increase Zepbound to 7.5 mg weekly, f/u 3 months Orders: Orders UA w Microscopic Today I10 - Essential (primary) hypertension Medications: New Zepbound (tirzepatide (weight loss)) 7.5 mg (0.5 mL) subcut QWEEK 2 mL 2RF NS Discontinued Zepbound (tirzepatide (weight loss)) Discontinued Reason: Doctor's Order 5 mg (0.5 mL) subcut QWEEK 2 mL 1RF NS
--- OUTSIDE RECORDS SUMMARY | 2024-10-30 14:37 | XMS_ITS | Clinical Summary ---
Author Organization [address] [facility] Address [address] [place] [address] Phone Care Team Providers Care Motion Picture Film Examiner Name Role Phone Veena Beltran MD Primary Care Provider [phone] Allergies No known active allergies Medications levothyroxine [...] Team Description 09/03/2024 Telephone Gastroenterology - [address] [place] [address] Charan Stephens MD from Last 3 Months Surgical History Surgery Date Site/Laterality Comments SECTION PROCEDURE: [place] DELIVERY ONLY OTHER SURGICAL HISTORY 2016 Bilateral [...] (2 - Td or Tdap) 04/30/2022 04/30/2012 Depression Screening 02/26/2024 Hypertension/CHF/CAD Annual BMP Blood Test 05/11/2024 12/28/2022 COVID-19 Vaccine (3 - 2024-2 6 season) 2024 06/17/2020, 05/27/2020 Influenza Vaccine (#1) 2024 03/23/2015 HIB Vaccines [...] patient's age to complete this topic Insurance [facility] [employer] PLANS MELISSA LEWIS [id number] Care Teams Motion Picture Film Examiner Relationship Specialty Start Date End Date Veena Beltran MD PCP - General Internal Medicine 10/31/21
--- OUTSIDE RECORDS SUMMARY | 2024-10-30 14:37 | XMS_ITS | Clinical Summary ---
Author Organization [facility] Facility Address [address] [place] [address] Care Team Providers Care Brick Cleaner Name Role Phone Veena Beltran MD Primary Care Provider [phone] Allergies No known active allergies Medications omega-3 [...] 11/30/2019 Influenza Vaccine (#1) 2024 Care Teams Brick Cleaner Relationship Specialty Start Date End Date Veena Beltran MD [address] [place] [address] PCP - General 03/07/20
== END 2024-10-30 17:48 | disposition home or self-care (01) ==
LOC: HO.HMCC 14:09
PROVIDERS: PCP Internal Medicine; Visit Provider Internal Medicine
DX: I10 Essential (primary) hypertension (principal); E66.3 Overweight

== ENCOUNTER → 2024-10-30 14:08 | Outpatient (BNVA) | payer OTHER, SELFPAY | PROVIDERS: PCP Internal Medicine; Visit Provider Internal Medicine | DX: I10 Essential (primary) hypertension (principal); E03.9 Hypothyroidism, unspecified; E66.3 Overweight; Z68.30 Body mass index [BMI] 30.0-30.9, adult; Z79.899 Other long term (current) drug therapy | CPT/HCPCS: 99212 ==

== ENCOUNTER 2024-11-10 12:07 | Outpatient (REF) | payer OTHER, SELFPAY ==
[2024-11-10 13:21] LABS: Appearance Urine Clear; Glucose Urine UA Negative (Negative); PH 7.0 (5.0-9.0); Specific Gravity - Urine <= 1.005 (1.005-1.025); UMIC TRIGGER UA YES
--- OUTSIDE RECORDS SUMMARY | 2024-11-10 16:15 | XMS_ITS | Clinical Summary ---
Author Organization [address] [facility] Address [address] [place] [address] Phone Care Team Providers Care Shale Planer Operator Helper Name Role Phone Veena Beltran MD Primary Care Provider [phone] Allergies No known active allergies Medications levothyroxine [...] Team Description 09/03/2024 Telephone Gastroenterology - [address] [place] [address] Charan Stephens MD from Last 3 Months Surgical History Surgery Date Site/Laterality Comments SECTION PROCEDURE: [place] DELIVERY ONLY OTHER SURGICAL HISTORY 2016 Bilateral [...] patient's age to complete this topic Insurance [facility] [employer] PLANS [place] [id number] Care Teams Shale Planer Operator Helper Relationship Specialty Start Date End Date Veena Beltran MD PCP - General Internal Medicine 10/31/21
--- OUTSIDE RECORDS SUMMARY | 2024-11-10 16:15 | XMS_ITS | Clinical Summary ---
Author Organization [facility] Facility Address [address] [place] [address] Care Team Providers Care Accountant Clerk Name Role Phone Veena Beltran MD Primary Care Provider [phone] Allergies No known active allergies Medications omega-3 [...] 11/30/2019 Influenza Vaccine (#1) 2024 Care Teams Accountant Clerk Relationship Specialty Start Date End Date Veena Beltran MD [address] [place] [address] PCP - General 03/07/20
== END 2024-11-10 12:08 | disposition home or self-care (01) ==
LOC: HO.HMGCLDS 12:07
PROVIDERS: PCP Internal Medicine; Visit Provider Internal Medicine
DX: I10 Essential (primary) hypertension (principal)
CPT/HCPCS: 81001

== ENCOUNTER 2025-01-05 15:29 | Outpatient (REF) | payer OTHER, SELFPAY ==
[2025-01-05 16:47] LABS: Appearance Urine Clear; Glucose Urine UA Negative (Negative); PH 6.5 (5.0-9.0); Specific Gravity - Urine <= 1.005 (1.005-1.025); UMIC TRIGGER UA YES
[2025-01-05 17:06] LABS: Anion Gap 11 (12-20); Blood Urea Nitrogen 12 mg/dL (9-16); Calcium 9.6 mg/dL (8.4-10.2); Carbon Dioxide 25 mmol/L (22-29); Chloride 109 mmol/L (96-108); Estimated Glomerular Filt Rate > 60; Potassium 4.1 mmol/L (3.3-5.1); Sodium 141 mmol/L (135-145)
[2025-01-05 17:14] LABS: Total Protein Urine Random < 7 mg/dL (<12)
== END 2025-01-05 15:30 | disposition home or self-care (01) ==
LOC: HO.LAB 15:29
PROVIDERS: PCP Internal Medicine; Visit Provider Internal Medicine Hypertension Specialist
DX: R80.9 Proteinuria, unspecified (principal)
CPT/HCPCS: 36415; 80048; 81001; 82570; 84156

== ENCOUNTER 2025-01-13 12:09 | Outpatient (AMB) | payer OTHER, SELFPAY ==
[2025-01-13 12:15] VITALS: BP 118/80; PULSE 78; O2SAT 99; BMI 30.2
--- NOTE | 2025-01-13 12:15 | HO.NEPHOV_ITS ---
Vital Signs 01/13/25 12:15 Height 5 ft 2 in Weight 165 lb BMI 30.2 BP 118/80 Blood Pressure Location Lt brachial Position Sitting Pulse 78 Pulse Source Pulse Oximeter Pulse Oximetry (%) 99 Oxygen Delivery Method Room Air Intake Visit Reasons: Follow Up 1yr Well Driller Helper Required: No Accompanied by: Self / Same As Patient Allergies No Known Allergies Allergy (Verified 01/13/25 12:16) Medication List - Last Reconciled 01/13/25 by Benjamín Blanton MD cholecalciferol (vitamin D3) 50 mcg PO DAILY cholecalciferol (vitamin D3) 1,250 mcg PO QWEEK levothyroxine 88 mcg PO DAILY mecobalamin (vitamin B12) 1,000 mcg PO DAILY valsartan 320 mg PO DAILY Zepbound (tirzepatide (weight loss)) 7.5 mg (0.5 mL) subcut QWEEK NS HPI Comments Details: Middle-aged woman with a BMI of 33 has had proteinuria for the last few years. She has no hematuria. Serum creatinine has been stable around 0.7 mg/dL. She has been on losartan 50 mg for the last few years and the urine protein excretion has been stable around 0.39 based on the protein creatinine ratio. About a month ago she stopped taking losartan for 2 weeks and she noted a blood pressure to be significantly elevated 190/110 mm of mercury associated with some headache. She took ibuprofen and restarted losartan. After is restarting losartan blood pressure has been well controlled. She has no new issues 20. No edema. No shortness of breath. No urinary symptoms. 01/22/24 Here for annual follow up NO change in weight Home BP has been sub optimal 01/13/25 The patient is a 54-year-old female presenting for follow-up regarding proteinuria. She has a history of proteinuria dating back to 2018, at which time her total protein was 536 mg. The patient is actively managing her weight and began taking Zepbound in June, which has resulted in a weight loss of nearly 20 pounds. Her goal is to lose a total of 40-50 pounds. She reports having had trouble with insurance coverage for the medication. Her blood pressure is managed with valsartan 320 mg. She notes her blood pressure is generally good, though she had one instance where it was 140/90, which resolved with rest. The patient experiences occasional left leg swelling, particularly after prolonged standing or travel, which she manages with compression stockings. She is careful with her salt intake. She has a family history of kidney disease (mother) and expresses concern, but her condition is stated to not be genetic. Recent lab results from this month show a creatinine of 0.72 and no protein in the urine, though a trace amount of blood was present, which the patient attributes to her menstrual cycle. [facility] Medical History Vitamin D deficiency Knee pain, right Overweight Normal breast exam Annual physical exam Abnormal colonoscopy Menopausal and female climacteric states HTN (hypertension) Proteinuria White coat syndrome with diagnosis of hypertension Hypercholesterolemia IUD (intrauterine device) in place Hypothyroidism Surgical History Hx of cholecystectomy History of section History of breast lift Family History Father Colitis HTN (hypertension) CVD (cardiovascular disease) Mother Breast cancer Sister No problems noted. Son No problems noted. Son No problems noted. Social History Housing: House Patient Tobacco Use Status: Never used Tobacco e-Cigarette/Vaping Use: Never Used Second Hand Smoke Exposure: No service: No Current occupational status: unemployed Cognitive needs: No Hearing needs: No Vision needs: No Physical Exam Vital Signs: Last Vital Signs Pulse 78 01/13/25 12:15 BP 118/80 01/13/25 12:15 Pulse Ox 99 01/13/25 12:15 Oxygen Delivery Method Room Air 01/13/25 12:15 BMI result Body Mass Index 30.2 Results Reviewed Nephrology Results: Hgb, (12.0-16.0) 14.4 g/dl 10/23/24 WBC, (4.8-10.8) 8.7 X10*3/uL 10/23/24 Plt Count, (160-400) 376 X10*3/uL 10/23/24 Sodium, (135-145) 141 mmol/L 01/05/25 Potassium, (3.3-5.1) 4.1 mmol/L 01/05/25 Chloride, (96-108) 109 mmol/L H 01/05/25 Carbon Dioxide, (22-29) 25 mmol/L 01/05/25 BUN, (9-16) 12 mg/dL 01/05/25 Creatinine, (0.5-1.4) 0.72 mg/dL 01/05/25 Calcium, (8.4-10.2) 9.6 mg/dL 01/05/25 Urine Protein, (Neg-Trace) Negative mg/dL 01/05/25 Urine Creatinine 10.95 mg/dL 01/05/25 Assessment & Plan Assessment & Plan (1) Proteinuria: Code(s): R80.9 - Proteinuria, unspecified Category: Medical (2) HTN (hypertension): Code(s): I10 - Essential (primary) hypertension Category: Medical Plan Middle-aged woman with minimal proteinuria of 390 mg based on urine protein creatinine ratio. Urinalysis was benign without any significant RBCs or casts. Serum creatinine has been stable around 0.7 mg/dL. The proteinuria is mostly related to her obesity. stay on low-sodium diet. She will benefit from weight loss which we are discussed. urine Protein : creatinine is down to 64 - normal Keep Valsartan monitor BP with weight loss, BP might decrease further . Lower Valsartan a s indicated by BP Orders: Orders Basic Metabolic Panel 1 Year I10 - Essential (primary) hypertension, R80.9 - Proteinuria, unspecified UA and rflx microscopic 1 Year I10 - Essential (primary) hypertension, R80.9 - Proteinuria, unspecified Creatinine Urine 1 Year I10 - Essential (primary) hypertension, R80.9 - Proteinuria, unspecified Total Protein Urine Random 1 Year I10 - Essential (primary) hypertension, R80.9 - Proteinuria, unspecified Coding Level of Care Code Est Pt Level 4 (52949) Diagnoses Proteinuria R80.9 HTN (hypertension) I10
--- OUTSIDE RECORDS SUMMARY | 2025-01-13 23:14 | XMS_ITS | Clinical Summary ---
Author Organization [facility] Facility Address [address] [place] [address] Care Team Providers Care Sewing Machine Tester Name Role Phone Veena Beltran MD Primary Care Provider [phone] Allergies No known active allergies Medications omega-3 [...] 11/30/2019 Influenza Vaccine (#1) 2024 Care Teams Sewing Machine Tester Relationship Specialty Start Date End Date Veena Beltran MD [address] [place] [address] PCP - General 03/07/20
== END 2025-01-13 12:30 | disposition home or self-care (01) ==
LOC: HO.HKAS 12:10
PROVIDERS: PCP Internal Medicine; Visit Provider Internal Medicine Hypertension Specialist
DX: R80.9 Proteinuria, unspecified (principal); I10 Essential (primary) hypertension
CPT/HCPCS: 99214

== ENCOUNTER → 2025-01-13 12:09 | Outpatient (BNVA) | payer OTHER, SELFPAY | PROVIDERS: PCP Internal Medicine; Visit Provider Internal Medicine Hypertension Specialist | DX: I10 Essential (primary) hypertension (principal); R80.9 Proteinuria, unspecified | CPT/HCPCS: 99212 ==

== ENCOUNTER 2025-01-25 08:46 | Outpatient (AMB) | payer OTHER, SELFPAY ==
--- NOTE | 2025-01-25 08:49 | MHC.OFFVIS ---
Vital Signs 01/25/25 08:54 Height 5 ft 2 in Weight 163 lb BMI 29.8 BP 100/74 Blood Pressure Location Rt brachial Position Sitting Pulse 82 Pulse Source Pulse Oximeter Pulse Oximetry (%) 97 Oxygen Delivery Method Room Air Intake Visit Reasons: colo screening/ abnormal findings Intake Note: New pt for recall colo screening. Last in 2019 w/ [facility]. 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 CC: Pt denies any current GI sx or concerns. 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 female with past medical history of hypothyroidism, hyperlipidemia, hypertension, status post cholecystectomy in 2021 is here today for pre colonoscopy screening.? Patient was sent to us by her PCP.? Patient had colonoscopy in December of 2019. Patient had polyps and was recommended to return in 5 years. Patient also has a family history of precancerous polyps.? Patient denies any gastrointestinal symptoms in the past or at present.? Denies family history of CRC.? Denies history of difficulty with sedation or anesthesia in the past.? Negative for history of sleep apnea.? Denies any history of cardiac, renal, pulmonary, or hepatic disease.?? No history of infectious? diseases like hepatitis A, B, C, HIV or tuberculosis.? Patient is not on any anticoagulation [facility] Medical History Vitamin D deficiency Knee pain, right Overweight Normal breast exam Annual physical exam Abnormal colonoscopy Menopausal and female climacteric states HTN (hypertension) Proteinuria White coat syndrome with diagnosis of hypertension Hypercholesterolemia IUD (intrauterine device) in place Hypothyroidism Surgical History Hx of cholecystectomy History of section History of breast lift Family History Father Colitis HTN (hypertension) CVD (cardiovascular disease) Mother Breast cancer Sister No problems noted. Son No problems noted. Son No problems noted. Social History Housing: House Patient Tobacco Use Status: Never used Tobacco e-Cigarette/Vaping Use: Never Used Second Hand Smoke Exposure: No service: No Current occupational status: unemployed Cognitive needs: No Hearing needs: No Vision needs: No Review of Systems Const Denies weight gain and Denies weight loss ENT Reports no additional complaints, Denies dysphagia and Denies odynophagia Card Reports no additional complaints Resp Reports no additional complaints GI Denies abdominal pain, Denies belching, Denies melena, Denies bloating, Denies change in bowel habits, Denies dysphagia, Denies excessive flatus, Denies dyspepsia, Denies heartburn, Denies diarrhea, Denies loose stools, Denies nausea, Denies odynophagia and Denies vomiting Musc Reports no additional complaints Neuro Reports no additional complaints Psych Reports no additional complaints Endo Reports no additional complaints Physical Exam Const General: healthy appearing, no acute distress and well developed Nutritional Appearance: well nourished Orientation/consciousness: patient oriented x3 Resp Effort & Inspection: normal respiratory effort, able to speak in complete sentences, no tracheal deviation and symmetric chest movement Auscultation: clear to auscultation bilaterally Cardio Rate: regular rate GI Inspection: Yes normal to inspection and No distended Palpation (GI): Soft to palpation, not firm, nontender and No hepatosplenomegaly present Auscultation: normal bowel sounds General: Yes no CVA tenderness Back/Spine/Pelvis Back: no CVA tenderness Skin General skin exam: elasticity normal, turgor normal and dry skin Neuro General: patient oriented x3 Psych Appearance: grossly normal Mental Status: mental status grossly normal Assessment & Plan Assessment & Plan (1) Screen for colon cancer: Code(s): Z12.11 - Encounter for screening for malignant neoplasm of colon Plan Patient denies any GI, cardiac or respiratory symptoms.? Denies any issues with anesthesia in the past.? Denies any history of sleep apnea.? No history infectious diseases in the past or present.? Not on any anticoagulation therapy.? No family or personal history of colon cancer or polyps.?Patient is on Zepbound. Patient denies melena, hematochezia, unintentional weight loss or ribbon like stools.? Discussed at length the pre-procedure,? prep, diet & medications as well as what to expect prior, during and after the procedure.?? Stressed the importance of good bowel prep.? Recommended the use of Vaseline or Calmoseptine OTC & baby wipes with bowel movements to promote comfort.? ?Patient verbalizes understanding and agrees to plan of care.? She was given the opportunity to ask questions and all questions answered.? We will see her after the procedure.? Orders: Referrals GI Procedure Notification Z12.11 - Encounter for screening for malignant neoplasm of colon Medications: New polyethylene glycol 3350 (Miralax) As directed by gastro[facility]ology department at [facility] 238 grams PO ONCE 238 grams 0RF Z12.11 - Encounter for screening for malignant neoplasm of colon bisacodyl (Dulcolax (bisacodyl)) take 4 tabs at noon the day before your colonoscopy 20 mg (4 x 5 mg) PO ONCE 4 tabs 0RF constipation 1 day Z12.11 - Encounter for screening for malignant neoplasm of colon Coding Level of Care Code New Pt Level 3 (03935) Diagnoses Screen for colon cancer Z12.11 Time Spent (min) 40 Comment 30 minutes spent with patient and additional 10 minutes spent reviewing her records
[2025-01-25 08:54] VITALS: BP 100/74; PULSE 82; O2SAT 97; BMI 29.8
--- OUTSIDE RECORDS SUMMARY | 2025-01-25 09:40 | XMS_ITS | Clinical Summary ---
Author Organization [facility] Address [address] [place] [address] Phone Care Team Providers Care Sales Product Specialist Name Role Phone Veena Beltran MD Primary Care Provider [phone] Allergies No known active allergies Medications levothyroxine [...] the skin every 7 (seven) days. Active Surgical History Surgery Date Site/Laterality Comments SECTION PROCEDURE: [facility] DELIV[facility] OTHER SURGICAL HISTORY 2016 Bilateral [...] Last Done Comments Breast Cancer Screening 1970 Colorectal Cancer Screening: Colonoscopy 1970 Hepatitis B Vaccines (1 of 3 - 19+ 3-dose series) 1989 Cervical Cancer Screening: P ap Smear 11/30/1991 Pneumococcal Vaccine: 50+ Years (1 of 1 - PCV) 2020 Zoster Vaccines (1 of 2) 2020 Cholesterol Screening (Lipid Panel) 01/24/2022 HIV Screening 01/24/2022 Hepatitis C Screening 01/24/2022 Social Influencers of Health Screening 01/24/2022 DTaP,Tdap,and Td Vaccines (2 - Td or Tdap) 04/30/2022 04/30/2012 Depression Screening 02/26/2024 Hypertension/CHF/CAD Annual BMP Blood Test 05/11/2024 12/28/2022 COVID-19 Vaccine (3 - 2024-2 6 season) 2024 06/17/2020, 05/27/2020 Influenza Vaccine (#1) 2024 03/23/2015 RSV Immunization Adult Patients (1 - 1-dose 75+ series) 2045 HIB Vaccines Aged Out No longer eligi [...] patient's age to complete this topic Insurance [facility] [place] PLANS MELISSA LEWIS [id number] Care Teams Sales Product Specialist Relationship Specialty Start Date End Date Veena Beltran MD PCP - General Internal Medicine 10/31/21
== END 2025-01-25 09:22 | disposition home or self-care (01) ==
LOC: HO.HGI 08:47
PROVIDERS: PCP Internal Medicine; Visit Provider Nurse Practitioner Family
DX: Z01.818 Encounter for other preprocedural examination (principal); Z12.11 Encounter for screening for malignant neoplasm of colon
CPT/HCPCS: 99203

== ENCOUNTER → 2025-01-25 08:46 | Outpatient (BNVA) | payer OTHER, SELFPAY | PROVIDERS: PCP Internal Medicine; Visit Provider Nurse Practitioner Family | DX: Z12.11 Encounter for screening for malignant neoplasm of colon (principal) | CPT/HCPCS: 99202 ==

== ENCOUNTER 2025-01-29 13:13 | Outpatient (AMB) | payer OTHER, SELFPAY ==
[2025-01-29 13:19] VITALS: BP 122/74; PULSE 89; RESP 17; TEMP 36.9; O2SAT 96; BMI 29.6
--- NOTE | 2025-01-29 13:19 | MHC.PC.OV ---
Vital Signs 01/29/25 13:19 Height 5 ft 2 in Weight 162 lb BMI 29.6 BP 122/74 Blood Pressure Location Lt brachial Position Sitting Respiration 17 Pulse 89 Pulse Source Pulse Oximeter Temp 98.4 F Temp Source Oral Pulse Oximetry (%) 96 Oxygen Delivery Method Room Air Intake Visit Reasons: Annual PE Intake Note: Pt is here today for PE. Allergies No Known Allergies Allergy (Verified 01/29/25 13:20) Medication List - Last Reconciled 01/29/25 by Veena Beltran MD bisacodyl (Dulcolax (bisacodyl)) 20 mg (4 x 5 mg) PO ONCE 1 day cholecalciferol (vitamin D3) 50 mcg PO DAILY levothyroxine 88 mcg PO DAILY mecobalamin (vitamin B12) 1,000 mcg PO DAILY polyethylene glycol 3350 (Miralax) 238 grams PO ONCE valsartan 320 mg PO DAILY Zepbound (tirzepatide (weight loss)) 7.5 mg (0.5 mL) subcut QWEEK NS Tobacco use date assessed: 01/29/25 Dental Screening Dental Screen Date: 08/27/24 HPI Annual PE HPI Details Pt presents for pe. [facility] Medical History (Updated 01/29/25 @ 15:40 by Veena Beltran MD) Vitamin D deficiency Knee pain, right Overweight Normal breast exam Annual physical exam Abnormal colonoscopy Menopausal and female climacteric states HTN (hypertension) Proteinuria White coat syndrome with diagnosis of hypertension Hypercholesterolemia IUD (intrauterine device) in place Hypothyroidism Surgical History Hx of cholecystectomy History of section History of breast lift Family History Father Colitis HTN (hypertension) CVD (cardiovascular disease) Mother Breast cancer Sister No problems noted. Son No problems noted. Son No problems noted. Social History Housing: House Patient Tobacco Use Status: Never used Tobacco e-Cigarette/Vaping Use: Never Used Second Hand Smoke Exposure: No service: No Current occupational status: unemployed Cognitive needs: No Hearing needs: No Vision needs: No Questionnaire Thrive Questionnaire Date Thrive assessed: 06/17/24 I am a: Patient What is your living situation today?: I have a steady place to live Within the past 12 months, did the food you bought not last and you didn't have the money to get more?: Never true Within the past 12 months, did you worry whether your food would run out before you got money to buy more?: Never true Do you have trouble paying for medicines?: No Do you have trouble getting transportation to medical appointments?: No Do you have trouble paying your heating and electricity bill?: No Do you have trouble taking care of your child, family member or friend?: No Do you have trouble with day-to-day activities such as bathing, preparing meals, shopping, managing finances, etc.?: No Are you currently unemployed and looking for a job?: I choose not to answer this question Are you interested in more education?: No Please select the resources that you would like help with: None Currently or been in a relationship where the following occur: No concerns reported THRIVE Score: 0 KIRAN-7 AMB Questionnaire KIRAN-7 Date KIRAN - 7 assessed: 03/18/24 Source: Developed by Drs. Sidney Mike, Staci Holland, Wai Palacio and colleagues, with an educational samantha from [employer]. Review of Systems Const All systems reviewed & are unremarkable except as noted in HPI and below Eyes Reports no additional complaints ENT Reports no additional complaints Card Reports no additional complaints Resp Reports no additional complaints GI Reports no additional complaints Reports no additional complaints Physical exam (Primary Care) Vital Signs: Last Vital Signs Temp 98.4 F 01/29/25 13:19 Pulse 89 01/29/25 13:19 Resp 17 01/29/25 13:19 BP 122/74 01/29/25 13:19 Pulse Ox 96 01/29/25 13:19 Oxygen Delivery Method Room Air 01/29/25 13:19 BMI result Body Mass Index 29.6 Tobacco/Smoking Status: Tobacco use Status Tobacco use date assessed 01/29/25 01/29/25 13:20 Patient Tobacco Use Status Never used Tobacco 01/29/25 13:20 e-Cigarette/Vaping Use Never Used 01/29/25 13:20 Thrive Assessment: Date of Thrive Assessment Date Thrive assessed 06/17/24 01/29/25 13:20 Currently or been in a relationship where the following occur: No concerns reported Const General: no acute distress HENMT Head: Yes normal to inspection Ears: TM's normal bilaterally Face and sinus: Yes normal facial exam Throat: Yes posterior oropharynx normal Eyes General: appearance normal, both eyes and all related structures Neck Neck: Yes no lymphadenopathy and Yes supple Resp Effort & Inspection: normal respiratory effort Auscultation: clear to auscultation bilaterally Cardio Rhythm: regular rhythm Heart sounds: S1 normal heart sound present and S2 normal heart sound present GI Inspection: Yes normal to inspection Palpation (GI): Soft to palpation Percussion: Yes normal to percussion Auscultation: normal bowel sounds Coding Level of Care Code Est Pt Prev Care 40-64y(24836) Diagnoses Heart murmur R01.1 Hypothyroidism E03.9 HTN (hypertension) I10 Annual physical exam Z00.00 Assessment & Plan Assessment & Plan (1) Heart murmur: Comment: family history of aortic regurgitation (mother) Code(s): R01.1 - Cardiac murmur, unspecified Category: Medical Plan: obtain echo (2) Hypothyroidism: Comment: dx: 2013, nl thyroid US 2018 Code(s): E03.9 - Hypothyroidism, unspecified Category: Medical Plan: continue levothyroxine (3) HTN (hypertension): Comment: established with Nephrology Code(s): I10 - Essential (primary) hypertension Category: Medical Plan: continue current medication follow-up in 6 months with a fasting labs before (4) Annual physical exam: Code(s): Z00.00 - Encounter for general adult medical examination without abnormal findings Category: Medical Plan: well-balanced diet regular physical activity discussed with the patient. She is up-to-date with the mammogram Pap smear and colonoscopy. Patient's insurance will not be covering Zepbound starting in February. Orders: Orders Complete Blood Count Auto Diff 6 Months E03.9 - Hypothyroidism, unspecified, E78.5 - Hyperlipidemia, unspecified, I10 - Essential (primary) hypertension CA echo transthoracic complete Today R01.1 - Cardiac murmur, unspecified Comprehensive [facility]. Panel Fast 6 Months E03.9 - Hypothyroidism, unspecified, E78.5 - Hyperlipidemia, unspecified, I10 - Essential (primary) hypertension Lipid Panel 6 Months E03.9 - Hypothyroidism, unspecified, E78.5 - Hyperlipidemia, unspecified, I10 - Essential (primary) hypertension Vitamin D 25-OH Total 6 Months E03.9 - Hypothyroidism, unspecified, E78.5 - Hyperlipidemia, unspecified, I10 - Essential (primary) hypertension Vitamin B12 and Folate 6 Months E03.9 - Hypothyroidism, unspecified, E78.5 - Hyperlipidemia, unspecified, I10 - Essential (primary) hypertension TSH reflex Free T4 6 Months E03.9 - Hypothyroidism, unspecified, E78.5 - Hyperlipidemia, unspecified, I10 - Essential (primary) hypertension UA w Microscopic 6 Months E03.9 - Hypothyroidism, unspecified, E78.5 - Hyperlipidemia, unspecified, I10 - Essential (primary) hypertension
--- OUTSIDE RECORDS SUMMARY | 2025-01-29 17:22 | XMS_ITS | Clinical Summary ---
Author Organization [facility] Facility Address [address] [place] [id number] Care Team Providers Care Stage Manager Name Role Phone Veena Beltran MD Primary Care Provider [phone] Allergies No known active allergies Medications omega-3 [...] 11/30/2019 Influenza Vaccine (#1) 2024 Care Teams Stage Manager Relationship Specialty Start Date End Date Veena Beltran MD [address] [place] [address] PCP - General 03/07/20
--- OUTSIDE RECORDS SUMMARY | 2025-01-29 17:22 | XMS_ITS | Clinical Summary ---
Author Organization [facility] Address [address] [place] [address] Phone Care Team Providers Care Bread Stacker Name Role Phone Veena Beltran MD Primary Care Provider [phone] Allergies No known active allergies Medications levothyroxine [...] patient's age to complete this topic Insurance [facility] [employer] PL[employer] MELISSA LEWIS [id number] Care Teams Bread Stacker Relationship Specialty Start Date End Date Veena Beltran MD PCP - General Internal Medicine 10/31/21
== END 2025-01-29 14:25 | disposition home or self-care (01) ==
LOC: HO.HMCC 13:13
PROVIDERS: PCP Internal Medicine; Visit Provider Internal Medicine
DX: Z00.00 Encounter for general adult medical examination without abnormal findings (principal); R01.1 Cardiac murmur, unspecified; E03.9 Hypothyroidism, unspecified; I10 Essential (primary) hypertension

== ENCOUNTER → 2025-01-29 13:13 | Outpatient (BNVA) | payer OTHER, SELFPAY | PROVIDERS: PCP Internal Medicine; Visit Provider Internal Medicine | DX: Z00.00 Encounter for general adult medical examination without abnormal findings (principal); R01.1 Cardiac murmur, unspecified; E03.9 Hypothyroidism, unspecified; I10 Essential (primary) hypertension | CPT/HCPCS: 99396 ==